=== PATIENT | female | born 1980 | race African-American/Black ===

== ENCOUNTER 2020-05-13 21:03 | Emergency (ER) | payer OTHER, SELFPAY ==
--- NOTE | ~2020-05-13 | XR_ITS ---
EXAMINATION: XR chest 2V DATE: 05/13/2020 23:16 INDICATION: Cough. Shortness of breath. TECHNIQUE: Frontal and lateral views of the chest were obtained. COMPARISON: Chest 2 views 07/20/2018 FINDINGS: The chest demonstrates clear lungs without pneumonia, pleural effusion, or pneumothorax. Th e heart size is normal. IMPRESSION: 1. No acute cardiopulmonary disease. Reviewed, dictated and finalized at location A.
[2020-05-13 21:37] VITALS: BP 126/84; PULSE 82; RESP 18; TEMP 36.6; O2SAT 100
[2020-05-13 22:26] VITALS: PULSE 73; RESP 16
--- NOTE | 2020-05-13 22:33 | ED.ASTHMA ---
HPI - Asthma General Chief Complaint: Asthma Stated Complaint: problems breathing/asthma Time Seen by Provider: 05/13/20 22:24 Source: patient Mode of arrival: ambulatory Limitations: no limitations History of Present Illness HPI Narrative: 39-year-old female Patient states a history of asthma but usually does not require medications She said that 2 weeks ago she started having some breathing difficulties and 6 days ago, Thursday, she had a virtual visit at which time she started albuterol and Symbicort plus prednisone However she still feels like she has shortness of breath and like she is not getting better Related Data Home Medications Medication Instructions Recorded Confirmed albuterol sulfate INHALATION 05/13/20 budesonide-formoterol [Symbicort] INHALATION 05/13/20 cyclobenzaprine mg 05/13/20 prednisone 05/13/20 Allergies Allergy/AdvReac Type Severity Reaction Status Date / Time No Known Allergies Allergy Unknown Verified 05/13/20 21:41 Review of Systems Review of Systems: All systems reviewed & are unremarkable except as noted in HPI and below Constitutional: Constitutional: Reports no additional constitutional complaints, Denies chills, Reports fatigue, Denies fever(s) and Denies headache(s) ENT: Denies headache(s), Reports nasal congestion and Denies sore throat Cardiovascular: Cardiovascular: Denies chest pain and Denies dyspnea Respiratory: Respiratory: Reports cough and Reports dyspnea Gastrointestinal: Gastrointestinal: Denies diarrhea and Denies vomiting Genitourinary: Genitourinary: Denies urinary frequency Musculoskeletal: Musculoskeletal: Denies deformity and Denies numbness Integumentary/Breasts: Skin/Breast: Denies rash and Denies wounds Neurologic: Denies focal weakness Psychiatric: Psychiatric: Reports no additional psychiatric complaints Endocrine: Endocrine: Reports no additional endocrine complaints Hematologic/Lymphatic: Hematologic/Lymphatic: Reports no additional hematologic/lymphatic complaints Allergic/Immunologic: Allergic/Immunologic: Reports no additional allergic/immunologic complaints [facility] Social History Social History Gender identity (if verbalized by the patient): Female Exam Const: General: no acute distress and alert Nutritional Appearance: obese Orientation/consciousness: patient oriented x3 HENMT: Head: normal to inspection Eyes: Conjunctivae: conjunctivae normal EOM: EOMs intact bilaterally Resp: Effort & Inspection: normal respiratory effort, not labored and no retractions Auscultation: clear to auscultation bilaterally, no rales and no wheezes Cardio: Rate: regular rate Rhythm: regular rhythm Heart sounds: no murmurs GI: GI Palp: Yes Soft to palpation, No Guarding due to palpation present (GI) and No Rebound tenderness present Neuro: General: patient oriented x3 Speech: normal speech Course Course Emergency Course: see post tx pf measures which are ~75% predicted and still not wheezing feeling better Vital Signs Vital signs: Vital Signs Temperature 36.6 C 05/13/20 21:37 Pulse Rate 82 05/13/20 21:37 Respiratory Rate 18 05/13/20 21:37 Blood Pressure 126/84 05/13/20 21:37 Pulse Oximetry 100 05/13/20 21:37 Temperature 36.6 C 05/13/20 21:37 Pulse Rate 73 05/13/20 23:37 Respiratory Rate 16 05/13/20 23:37 Blood Pressure 126/84 05/13/20 21:37 Pulse Oximetry 100 05/13/20 21:37 MDM - Asthma Imaging Data My impression: CXR: NAD Discharge Plan Discharge Clinical Impression: Asthma with acute exacerbation Patient Disposition: Home, Self-Care Condition: Improved Instructions: Antibiotic Form, Asthma (ED) Prescriptions: No Action cyclobenzaprine 10 mg tablet RF: 0 prednisone 20 mg tablet RF: 0 albuterol sulfate 90 mcg/actuation HFA aerosol inhaler INHALATION RF: 0 budesonide-formoterol [Symbicort] 160-4.5 mcg/actuation HFA aerosol inha
[2020-05-13] MEDS: ALBUTEROL SULFATE NEB 2.5 MG/0.5 ML INH 5 MG INHALATION ×2 (22:38→23:25)
[2020-05-13] MEDS: IPRATROPIUM BR 0.02% INH SOLN 0.5 MG/2.5 ML VIAL INHALATION ×2 (22:38→23:25)
[2020-05-13 22:49] VITALS: PULSE 67; RESP 16
[2020-05-13 23:28] VITALS: PULSE 72; RESP 16
[2020-05-13 23:37] VITALS: PULSE 73; RESP 16
[2020-05-14 00:45] VITALS: BP 118/71; PULSE 81; RESP 16; O2SAT 100
== END 2020-05-14 00:46 | disposition home or self-care (01) ==
PROVIDERS: Emergency Provider Emergency Medicine; PCP Physician Assistant
DX: J45.901 Unspecified asthma with (acute) exacerbation (principal)
CPT/HCPCS: 71046; 94640; 99283

== ENCOUNTER 2020-07-20 18:19 | Emergency (ER) | payer OTHER, SELFPAY ==
[2020-07-20 18:32] VITALS: BP 124/72; PULSE 89; RESP 20; TEMP 36.5; O2SAT 100
--- NOTE | 2020-07-20 18:33 | ED.GENADULT ---
HPI - General Adult General Chief complaint: Urogenital-Female Stated complaint: uti Time Seen by Provider: 07/20/20 18:33 Source: patient and RN notes reviewed Mode of arrival: ambulatory Limitations: no limitations History of Present Illness HPI narrative: 40-year-old -[place] female presents with vaginal discharge, irritation, and intermittent abdominal pain for the past 21 days. Cain reports increasing cloudy discharge over the past 2 weeks. Vaginal cream without relief. No significant pelvic pain. No dysuria. Denies fever or chill. Concerns for STDs, unprotected intercourse 2 months ago. Sexually active. Denies unprotected intercourse and multiple partners. Does not douche. No exacerbating factors. Denies hematuria or vaginal bleeding. LMP unknown, Cain reports menstrual flow does not flow down due to vaginal ablation. No flank pain. Denies nausea or vomiting.? Tolerating liquids well.? Remains active. The patient reports she has not been diagnosed with COVID-19.? The patient reports she received 2 Pfizer COVID-19 vaccines. The patient reports she is not waiting for the results of a COVID-19 lab test.? The patient reports she does not have chills, weakness, or fatigue.? The patient reports she does not have a new or worsening cough or shortness of breath.? Denies chest pain.? The patient reports she does not have any rhinorrhea, congestion, sore throat, loss of taste or smell, and diarrhea. Denies recent traveling.? Denies concerns for COVID-19 or exposures.? At this time, the patient is not suspected of having COVID-19. Some parts of this dictation were generated by voice recognition software and may contain typographical and/or grammatical inaccuracies. Related Data Home Medications Medication Instructions Recorded Confirmed albuterol sulfate INHALATION 05/13/20 budesonide-formoterol [Symbicort] INHALATION 05/13/20 terconazole 1 applic VAGINAL DAILY 07/20/20 07/20/20 Allergies Allergy/AdvReac Type Severity Reaction Status Date / Time No Known Allergies Allergy Unknown Verified 07/20/20 18:24 Review of Systems Review of Systems: Narrative: CONSTITUTIONAL: Denies fever, chills, sweats. EYES: Denies visual changes, redness, discharge. ENT: Denies rhinorrhea, congestion, sore throat, otalgia. CARDIOVASCULAR: Denies chest pain, palpitations, edema. RESPIRATORY: Denies dyspnea, wheezing, cough. GASTROINTESTINAL: Complaints of intermittent abdominal pain. Denies nausea, vomiting, diarrhea. GENITOURINARY: Complains of dysuria (burning, frequent, urgency), vaginal irritation, abnormal discharge. Denies hematuria. SKIN: Denies rash or itching. MUSCULOSKELETAL: Denies acute back pain, joint pain, or myalgia. NEUROLOGIC: Denies numbness or focal weakness. PSYCHIATRIC: Denies anxiety or depression. All systems reviewed & are unremarkable except as noted in HPI and below. [facility] Past Medical History Medical History (Updated 07/26/20 @ 22:21 by LISA Beckham) Asthma IBS (irritable colon syndrome) Obese Surgical History Surgical History (Updated 07/26/20 @ 22:23 by LISA Beckham) History of endometrial ablation 12/2019 History of tonsillectomy History of tubal ligation Family History Family History (Updated 07/26/20 @ 22:22 by LISA Beckham) Father Unknown family medical history Mother Smoker in home Social History Social History Gender identity (if verbalized by the patient): Female Comments At time of signature, agree with the nurse past medical, surgical, social, and family history.? There is no relevant family history pertinent to the presenting complaint. Exam Narrative: Exam Narrative: GENERAL: This is a well-nourished, well-developed patient, in no apparent distress.? Talks in full sentences and ambulates with steady gait without dyspnea. HEAD: normocephalic, atraumatic. EYES: PERRL
[2020-07-20] MEDS: metroNIDAZOLE 250 MG TABLET 2000 MG PO (19:18)
[2020-07-20] MEDS: cefTRIAXone 250 MG VIAL 500 MG IM (19:18)
[2020-07-20] MEDS: LIDOCAINE HCL 1% LOCAL INJ 20 ML VIAL INFILTRATE (19:18)
== END 2020-07-20 19:46 | disposition home or self-care (01) ==
PROVIDERS: Emergency Provider Nurse Practitioner Family; PCP Physician Assistant
DX: N76.0 Acute vaginitis (principal); R10.9 Unspecified abdominal pain; Z20.2 Contact with and (suspected) exposure to infections with a predominantly sexual mode of transmission
CPT/HCPCS: 81003; 87491; 87591; 87661; 96372; 99214; A9270; G0463; J0696

== ENCOUNTER 2021-03-15 13:18 | Emergency (ER) | payer OTHER, SELFPAY ==
[2021-03-15 13:26] VITALS: BP 131/75; PULSE 90; RESP 20; TEMP 36.2; O2SAT 99
--- NOTE | 2021-03-15 13:27 | ED.URI ---
HPI - URI/Sore Throat General Chief Complaint: Upper Respiratory Infection Stated Complaint: congestion Time Seen by Provider: 03/15/21 13:44 Source: patient and RN notes reviewed Mode of arrival: ambulatory Limitations: no limitations History of Present Illness HPI Narrative: 40-year-old female presents with concern for sneezing, cough, nasal drainage, nasal congestion that started on Thursday. She reports general malaise and feeling tired. She reports she is vaccinated. She is taking [id number] medications with little relief. Reports she has been needing her rescue inhaler, when she normally does not use it. MD elicited complaint: cough and sore throat Related Data Allergies Allergy/AdvReac Type Severity Reaction Status Date / Time No Known Allergies Allergy Unknown Verified 03/15/21 13:32 Review of Systems Review of Systems: CONSTITUTIONAL: Reports malaise, fatigue. Chills, sweats, or fever. EYES: Denies visual changes, redness, or discharge. ENT: Reports rhinorrhea, congestion. Denies sinus pain, otalgia and sore throat. CARDIOVASCULAR: Denies chest pain, palpitations, or edema. RESPIRATORY: Reports cough. Denies dyspnea. GASTROINTESTINAL: Denies abdominal pain, nausea, vomiting, diarrhea SKIN: Denies rash or itching. MUSCULOSKELETAL: Denies myalgia. NEUROLOGIC: Denies headache. All systems reviewed & are unremarkable except as noted in HPI and below PMFSH Past Medical History Medical History (Updated 03/15/21 @ 13:42 by Elke Owens NP) Asthma IBS (irritable colon syndrome) Obese Surgical History Surgical History (Updated 07/26/20 @ 22:23 by LISA Beckham) History of endometrial ablation 12/2019 History of tonsillectomy History of tubal ligation Family History Family History (Updated 07/26/20 @ 22:22 by LISA Beckham) Father Unknown family medical history Mother Smoker in home Social History Social History Gender identity (if verbalized by the patient): Female Comments At time of signature, agree with nursing past medical, surgical, social and family history. There is no relevant family history pertinent to the presenting complaint Exam Narrative: GENERAL: Well-appearing, well-nourished, and in no acute distress. HEAD: Normocephalic EYES: PERRLA, conjunctivae clear ENT: Nares clear, clear discharge. Mucous membranes moist. TM pearly salazar with dull light reflex bilaterally; no tragal tenderness. Oropharynx not erythematous without lesions. Tonsils not enlarged and without exudate, no drooling, no hoarseness, no trismus, uvula midline. NECK: Supple. No lymphadenopathy CHEST: Clear to auscultation, breath sounds equal. No wheezing, rhonchi, rales, or stridor. No respiratory distress, speaks in full sentences. HEART: Regular rate and rhythm. No murmur heard. SKIN: Warm, dry, no rash. NEURO: Alert and oriented x3. PSYCH: Normal mood and affect Course Course Emergency Course: Patient is aware of diagnosis, understands and agrees to treatment plan. Anticipatory guidance given. Patient agrees to follow-up as directed and is aware of reasons to seek care at the emergency department. Portions of this record may have been created with voice recognition software Level of Care: Express Care Visit Vital Signs Vital signs: Reviewed. MDM - URI/Sore Throat MDM Narrative Medical decision making narrative: Differential diagnosis considered: Lewis virus, strep pharyngitis, allergic rhinitis, upper respiratory tract infection, sinusitis, rhinosinusitis, nasopharyngitis. viral pharyngitis, otitis media, otitis externa, pneumonia, bronchitis, viral cough syndrome, viral syndrome, and influenza. Exam findings show no acute concerns or changes; patient is non-toxic appearing and is in no distress. Patient is appropriate for outpatient treatment and follow-up. Lab Data Attestation: I reviewed the patient's lab results. Cri
== END 2021-03-15 13:51 | disposition home or self-care (01) ==
PROVIDERS: Emergency Provider Nurse Practitioner; PCP Physician Assistant
DX: J06.9 Acute upper respiratory infection, unspecified (principal); Z20.822 Contact with and (suspected) exposure to COVID-19; J45.909 Unspecified asthma, uncomplicated
CPT/HCPCS: 87426; 87804; 99213; C9803; G0463

== ENCOUNTER 2021-04-04 09:36 | Emergency (ER) | payer OTHER, SELFPAY ==
[2021-04-04 09:45] VITALS: BP 119/69; PULSE 94; RESP 16; TEMP 37.5; O2SAT 99
--- NOTE | 2021-04-04 09:49 | ED.FEVER ---
HPI - Fever General Chief Complaint: Upper Respiratory Infection Stated Complaint: Body aches/fever Time Seen by Provider: 04/04/21 09:49 Source: patient, RN notes reviewed and old records reviewed Mode of arrival: ambulatory Limitations: no limitations History of Present Illness HPI Narrative: 40-year-old female presents to the [facility] with complaints of generalized body aches and subjective fever since last night. States she took a home COVID test and it was negative. Patient denies any chest pain, shortness of breath, abdominal pain, nausea, vomiting or diarrhea. Denies headaches, sore throat, or any upper respiratory symptoms. Denies any urinary symptoms. Related Data Home Medications Medication Instructions Recorded Confirmed No Home Medications 04/04/21 04/04/21 Allergies Allergy/AdvReac Type Severity Reaction Status Date / Time No Known Allergies Allergy Unknown Verified 03/15/21 13:32 Review of Systems Review of Systems: All systems reviewed & are unremarkable except as noted in HPI and below Constitutional: Constitutional: Reports as per HPI, Denies chills, Reports fatigue and Reports fever(s) (Subjective) Eyes: Eyes: Reports no additional eye complaints, Denies change in vision and Denies photophobia ENT: Reports system reviewed and no additional complaints, except as documented and Denies sore throat Cardiovascular: Cardiovascular: Reports no additional cardiovascular complaints and Denies chest pain Respiratory: Respiratory: Reports no additional respiratory complaints, Denies chest congestion, Denies cough, Denies dyspnea and Denies wheezing Gastrointestinal: Gastrointestinal: Reports no additional gastrointestinal complaints, Denies abdominal pain, Denies nausea and Denies vomiting Musculoskeletal: Musculoskeletal: Reports as per HPI and Reports myalgias Integumentary/Breasts: Skin/Breast: Reports system reviewed and no additional complaints, except as docu Neurologic: Reports system reviewed and no additional complaints, except as documented, Denies dizziness, Denies headache(s), Denies focal weakness, Denies numbness and Denies weakness Psychiatric: Psychiatric: Reports no additional psychiatric complaints Allergic/Immunologic: Allergic/Immunologic: Reports no additional allergic/immunologic complaints [facility] Past Medical History Medical History (Updated 04/04/21 @ 10:11 by Elke Gunn APRN) Asthma IBS (irritable colon syndrome) Obese Surgical History Surgical History History of endometrial ablation 12/2019 History of tonsillectomy History of tubal ligation Family History Family History Father Unknown family medical history Mother Smoker in home Social History Social History Gender identity (if verbalized by the patient): Female Comments At the time of my signature, I reviewed and agree with the nursing past medical, surgical, social, and family history. There is no relevant family history pertinent to the patient complaint. Exam Const: General: healthy appearing, no acute distress and alert Nutritional Appearance: well nourished Orientation/consciousness: patient oriented x3 Limitations: no limitations HENMT: Head: normal to inspection Ears: external ears normal, TM's normal bilaterally and EAC's normal General nose exam: Normal external nose present Face and sinus: normal facial exam Mouth: Yes Normal oral and palatal mucosa present Throat: posterior oropharynx normal, tonsils normal and uvula midline Eyes: Pupils: Equal, round and reactive pupils present Neck: Neck: normal visual inspection, no lymphadenopathy and no meningeal signs Chest: Chest palpation & inspection: normal inspection of the chest Resp: Effort & Inspection: normal respiratory effort and no use of accessory muscles [facility]
[2021-04-05 17:14] LABS: SARS-CoV-2 RNA PCR Negative
== END 2021-04-04 10:13 | disposition home or self-care (01) ==
PROVIDERS: Emergency Provider Nurse Practitioner; PCP Physician Assistant
DX: R52 Pain, unspecified (principal); B34.9 Viral infection, unspecified; Z20.822 Contact with and (suspected) exposure to COVID-19; J45.909 Unspecified asthma, uncomplicated; E66.9 Obesity, unspecified; Z68.35 Body mass index [BMI] 35.0-35.9, adult
CPT/HCPCS: 87804; 99213; C9803; G0463; U0003; U0005

== ENCOUNTER 2021-09-09 12:10 | Emergency (ER) | payer OTHER, SELFPAY ==
[2021-09-09 12:24] VITALS: BP 118/66; PULSE 81; RESP 18; TEMP 36.6; O2SAT 98
--- NOTE | 2021-09-09 12:38 | ED.FEMALEGU ---
HPI - Female Genitourinary General Chief complaint: Urogenital-Female Stated complaint: UTI Time Seen by Provider: 09/09/21 12:38 Source: patient and RN notes reviewed Mode of arrival: ambulatory Limitations: no limitations History of Present Illness HPI Narrative: 41 y/o female presented for lower abdominal cramping for 2 days. Endorses associated urinary frequency and voiding in small amounts and mid low back pain. Denies hematuria, flank pain, nausea, vomiting, diarrhea, vaginal discharge, fever or chills. Concerned for uti. History of IBS-C. LBM 3 days ago. LMP 7, hx tubal ligation Related Data Home Medications Medication Instructions Recorded Confirmed albuterol sulfate 2 inh inhalation DIRECTED 09/09/21 09/09/21 norethindrone 1.5 mg-ethinyl 1 tablet PO DAILY 09/09/21 09/09/21 estradiol 30 mcg(21)/iron 75 mg(7) tablet (Aurovela Fe 1.5/30 (28)) terbinafine HCl 250 mg tablet 250 mg PO DIRECTED 09/09/21 09/09/21 Allergies Allergy/AdvReac Type Severity Reaction Status Date / Time No Known Allergies Allergy Unknown Verified 09/09/21 12:11 Review of Systems Review of Systems: CONSTITUTIONAL: Denies body aches, fever, chills, or sweats. CARDIOVASCULAR: Denies chest pain, palpitations, or edema. RESPIRATORY: Denies cough or dyspnea. GASTROINTESTINAL: Denies nausea, vomiting, or diarrhea. GENITOURINARY: Reports frequency, urgency, denies dysuria, hematuria, flank pain SKIN: Denies rash, itching, or wounds. MUSCULOSKELETAL: Denies back pain or myalgia. [facility] Past Medical History Medical History (Updated 09/09/21 @ 12:48 by Melissa Larios APRN) Asthma IBS (irritable colon syndrome) Obese Surgical History Surgical History History of endometrial ablation 12/2019 History of tonsillectomy History of tubal ligation Family History Family History Father Unknown family medical history Mother Smoker in home Social History Social History Gender identity (if verbalized by the patient): Female Comments At time of signature, I have reviewed and agree with nursing past medical, surgical, social and family history unless otherwise noted. Please see nursing chart for further information. There is no relevant family history pertinent to the presenting complaint Exam Narrative: GENERAL: Well-appearing and in no acute distress. ENT: Mucous membranes pink and moist. NECK: Normal AROM. Supple. CHEST: No respiratory distress. Clear to auscultation. HEART: Regular rate and rhythm. ABDOMEN: Soft, tender to bilateral lower quadrants with deep palpation; nondistended, normal active bowel sounds. No CVA tenderness MUSCULOSKELETAL: No bony tenderness. Back pain is mid low back no vpt. SKIN: Warm, dry, no rash. NEURO: Alert and oriented x3. Gait steady. Course Course Emergency Course: Patient is aware of diagnosis, understands and agrees to treatment plan. Anticipatory guidance given. Patient agrees to follow-up as directed and is aware of reasons to seek care at the emergency department. Portions of this record may have been created with voice recognition software Level of Care: Express Care Visit Vital Signs Vital signs: Vital Signs Temperature 97.8 F 09/09/21 12:24 Pulse Rate 81 09/09/21 12:24 Respiratory Rate 18 09/09/21 12:24 Blood Pressure 118/66 09/09/21 12:24 Pulse Oximetry 98 09/09/21 12:24 Oxygen Delivery Room Air 09/09/21 12:24 Temperature 97.8 F 09/09/21 12:24 Pulse Rate 81 09/09/21 12:24 Respiratory Rate 18 09/09/21 12:24 Blood Pressure 118/66 09/09/21 12:24 Pulse Oximetry 98 09/09/21 12:24 Oxygen Delivery Room Air 09/09/21 12:24 Reviewed MDM - Female Genitourinary MDM Narrative Medical decision making narrative: Patient presenting with concern for UT
== END 2021-09-09 12:53 | disposition home or self-care (01) ==
PROVIDERS: Emergency Provider Nurse Practitioner Family
DX: R35.0 Frequency of micturition (principal); J45.909 Unspecified asthma, uncomplicated; E66.9 Obesity, unspecified; Z68.33 Body mass index [BMI] 33.0-33.9, adult
CPT/HCPCS: 81003; 87086; 87491; 87591; 87661; 99214; G0463

== ENCOUNTER 2021-10-06 14:04 | Emergency (ER) | payer OTHER, SELFPAY ==
[2021-10-06 14:15] VITALS: BP 124/81; PULSE 77; RESP 16; TEMP 36.5; O2SAT 98
--- NOTE | 2021-10-06 15:09 | PC.NURSE ---
Assuming care of patient.
--- NOTE | 2021-10-06 15:27 | ED.GENADULT ---
HPI - General Adult General Chief complaint: Back Pain/Injury Stated complaint: back pain Time Seen by Provider: 10/06/21 14:36 History of Present Illness HPI narrative: 41-year-old female presenting to the emergency department for evaluation of right-sided lower back pain. Patient reports she has a prior history of low back pain but has never had back surgeries. Patient states that she used to get steroid injections. Patient states she has not had back pain for approximate the last 2 years. Patient states today while she was leaning into her trunk to grab a bottle of water she had onset of lower back pain. Patient denies any radiation of the pain and denies any associated numbness or weakness. Patient denies any change in bowel or bladder habits. Related Data Home Medications Medication Instructions Recorded Confirmed albuterol sulfate 2 inh inhalation DIRECTED 09/09/21 09/09/21 norethindrone 1.5 mg-ethinyl 1 tablet PO DAILY 09/09/21 09/09/21 estradiol 30 mcg(21)/iron 75 mg(7) tablet (Aurovela Fe 1.5/30 (28)) terbinafine HCl 250 mg tablet 250 mg PO DIRECTED 09/09/21 09/09/21 Allergies Allergy/AdvReac Type Severity Reaction Status Date / Time No Known Allergies Allergy Unknown Verified 10/06/21 14:42 Review of Systems Review of Systems: CONSTITUTIONAL: Denies fever, chills, or sweats. EYES: Denies visual changes, redness, or discharge. ENT: Denies rhinorrhea, congestion, sore throat, or otalgia. CARDIOVASCULAR: Denies chest pain, palpitations, or edema. RESPIRATORY: Denies cough or dyspnea. GASTROINTESTINAL: Denies abdominal pain, nausea, vomiting, or diarrhea. GENITOURINARY: Denies dysuria or hematuria. SKIN: Denies rash or itching. MUSCULOSKELETAL: See HPI NEUROLOGIC: Denies headache, numbness, or weakness. [facility] Past Medical History Medical History (Updated 10/06/21 @ 15:31 by Francis Hendricks MD) Asthma IBS (irritable colon syndrome) Obese Surgical History Surgical History History of endometrial ablation 12/2019 History of tonsillectomy History of tubal ligation Family History Family History Father Unknown family medical history Mother Smoker in home Social History Social History Gender identity (if verbalized by the patient): Female Exam Narrative: APPEARANCE: Well appearing, no pain, no distress, well-nourished. HEAD: normocephalic, atraumatic. EYES: PERRLA/EOMI, conjunctivae clear. NOSE: Normal no drainage NECK: Supple. No adenopathy, no masses. RESPIRATORY: Airway patent, respirations nonlabored. Clear to auscultation bilaterally, no rales, rhonchi, wheezing. CARDIOVASCULAR: Regular rate and rhythm without murmurs rubs or gallops. ABDOMINAL: Soft, nontender, nondistended, normal bowel sounds MUSCULOSKELETAL: Moves all extremities. Strength/ROM intact, No edema, No calf tenderness. Right paraspinal lumbar tenderness to palpation. No midline tenderness and no step-offs or deformities NEURO: Alert. Cranial nerves II through XII intact. Grossly intact SKIN: Warm, dry. Normal Color Course Course Emergency Course: Patient was treated for musculoskeletal back pain. Patient is neurologically intact. Patient's mechanism is not concerning for fracture. Patient was advised on home treatment and advised on reasons to return to the emergency department. All questions and concerns were addressed. Patient was well-appearing at time of discharge. Vital Signs Vital signs: Vital Signs Temperature 97.7 F 10/06/21 14:15 Pulse Rate 77 10/06/21 14:15 Respiratory Rate 16 10/06/21 14:15 Blood Pressure 124/81 10/06/21 14:15 Pulse Oximetry 98 10/06/21 14:15 Oxygen Delivery Room Air 10/06/21 14:15 Temperature 97.7 F 10/06/21 14:15 Pulse Rate 77 10/06/21 14:15 Respiratory Rate 16 10/06/21
[2021-10-06] MEDS: CYCLOBENZAPRINE HCL 10 MG TABLET PO (15:31)
== END 2021-10-06 16:35 | disposition home or self-care (01) ==
PROVIDERS: Emergency Provider Emergency Medicine
DX: M54.50 Low back pain, unspecified (principal); J45.909 Unspecified asthma, uncomplicated; K58.9 Irritable bowel syndrome, unspecified; E66.9 Obesity, unspecified; Z68.35 Body mass index [BMI] 35.0-35.9, adult
CPT/HCPCS: 99283; A9270

== ENCOUNTER 2022-02-22 07:27 | Emergency (ER) | payer OTHER, SELFPAY ==
[2022-02-22] VITALS (22 sets, daily range): BP systolic 98–148; BP diastolic 58–92; PULSE 60–77; RESP 16–18; TEMP 36.3; O2SAT 96–100
--- NOTE | ~2022-02-22 | CT_ITS ---
EXAMINATION: CT abdomen pelvis w con DATE: 02/22/2022 08:41 INDICATION: Right sided abdominal pain and diarrhea for 2 days TECHNIQUE: Computed tomography (CT) of the abdomen and pelvis was performed with 100 CC Omnipaque 350 intravenous contrast. Automated exposure control and iterative reconstruction technique were employe d. Exam dose: 1175.20 mGy-cm total exam DLP. COMPARISON: 11/26/2016 obstructive series FINDINGS: Minimal bilateral dependent lower lobe atelectasis. Normal heart size. No pericardial or pl eural effusion. The liver, gallbladder, bile ducts, pancreas, pancreatic duct, spleen, and adrenal gl ands are unremarkable. Lateral renal cysts the largest on the right measuring 10 mm. No urinary tract calculus or hydroureteronephrosis. Normal caliber of the abdominal aorta. Bowels including the appendix are normal. Small fat-containing umbilical hernia. Bladder is normal. 1 cm enhancing fibroid at the right posterior lower uterine seg ment. There are couple right adnexal cysts, one measuring 1.7 cm and the smaller measuring 1.2 cm wit h peripheral enhancing wall likely representing a corpus luteum cyst. Minimal likely physiologic free fluid in the pelvis. No pathologically enlarged abdominal or pelvic lymphadenopathy. Moderate to sev ere lower lumbar spondylosis. IMPRESSION: 1. A couple small right ovarian cysts including a 1.2 cm likely corpus luteum cyst with minimal likel y physiologic free fluid in the pelvis. 2. 1 minute likely uterine fibroid. 2. Small fat-containing umbilical hernia. Reviewed, dictated and finalized at [facility]. Reviewed, dictated and finalized at [facility]. HT CALCULATOR IMPRESSION: 1. A couple small right ovarian cysts including a 1.2 cm likely corpus luteum c yst with minimal likely physiologic free fluid in the pelvis. 2. 1 minute likely uterine fibroid. 2. Small fat-containing umbilical hernia.
--- NOTE | ~2022-02-22 | US_ITS ---
EXAMINATION: US pelvic complete DATE: 02/22/2022 13:54 INDICATION: Right abdominal pain with right ovarian cyst on prior CT. TECHNIQUE: Multiple transabdominal and endovaginal sonographic images of the pelvis were obtained. COMPARISON: None. FINDINGS: The uterus measures 10.0 x 5.6 x 6.8 cm. The endometrial complex measures 6 mm in thickness. A well- defined junctional zone with heterogeneous echogenicity and 2 mm anechoic cystic space posteriorly co nsistent with diffuse adenomyosis. A few anechoic nabothian cysts at the cervix measuring, the larges t measuring up to 10 mm . The right ovary measures 3.8 x 2.0 x 3.7 cm. There are several cysts/follic les in the right ovary, the largest measuring 2.0 cm with a smaller 1.4 cm cyst with somewhat thicken ed irregular wall which appears to have ruptured along one side which corresponds to the peripherally enhancing cyst on prior CT most consistent with a corpus luteum cyst. The left ovary measures 2.0 x 1.4 x 1.7 cm. There is normal vascular flow including arterial waveforms in both the left and right o varies. There is small amount anechoic free fluid in the pelvis. IMPRESSION: 1. Normal vascular flow to the right ovary which contains a few small cysts/follicles including a lik luis partially ruptured 1.4 cm corpus luteum cyst. 2. Diffuse adenomyosis. Reviewed, dictated and finalized at [facility]. MILL OPERATOR IMPRESSION: 1. Normal vascular flow to the right ovary which contains a few small cysts/fol licles including a likely partially ruptured 1.4 cm corpus luteum cyst. 2. Diffuse adenomyosis.
--- NOTE | 2022-02-22 07:30 | ED.ABDPAIN ---
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 She denies any fever, chills, nausea, vomiting, diarrhea, constipation, vaginal bleeding or discharge, history of bilateral tubal ligation. Patient reports pain radiating to the back. She denies having similar symptoms Related Data Home Medications Medication Instructions Recorded Confirmed albuterol sulfate 2 inh inhalation DIRECTED 09/09/21 09/09/21 norethindrone 1.5 mg-ethinyl 1 tablet PO DAILY 09/09/21 09/09/21 estradiol 30 mcg(21)/iron 75 mg(7) tablet (Aurovela Fe 1.5/30 (28)) terbinafine HCl 250 mg tablet 250 mg PO DIRECTED 09/09/21 09/09/21 Allergies Allergy/AdvReac Type Severity Reaction Status Date / Time No Known Allergies Allergy Unknown Verified 02/22/22 07:31 Review of Systems Review of Systems: All systems reviewed & are unremarkable except as noted in HPI and below PMFSH Past Medical History Medical History Asthma IBS (irritable colon syndrome) Obese Surgical History Surgical History History of endometrial ablation 12/2019 History of tonsillectomy History of tubal ligation Family History Family History Father Unknown family medical history Mother Smoker in home Social History Social History Gender identity (if verbalized by the patient): Female Exam Narrative: General appearance: Well-developed, well-nourished Skin: Normal color Head: Normocephalic, nontraumatic Eyes: Clear conjunctiva ENT: Oropharynx normal, ears normal, nose normal Neck: Supple, nontender Chest and respiratory: Airway patent, no respiratory distress, no accessory muscle use Heart: Regular rate/rhythm Abdomen: Soft, right lower quadrant tenderness, rebound, no guarding, no organomegaly, quiet bowel sounds Vascular: Normal peripheral pulses, normal capillary refill. 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 normal as tested, no gross motor deficit Course Vital Signs Vital signs: Vital Signs Temperature 36.3 C L 02/22/22 07:28 Pulse Rate 77 02/22/22 07:28 Respiratory Rate 16 02/22/22 07:28 Blood Pressure 148/92 H 02/22/22 07:28 Pulse Oximetry 100 02/22/22 07:28 Temperature 36.3 C L 02/22/22 07:28 Pulse Rate 64 02/22/22 10:15 Respiratory Rate 18 02/22/22 10:15 Blood Pressure 112/66 02/22/22 10:15 Pulse Oximetry 100 02/22/22 10:15 MDM - Abdominal Pain MDM Narrative Medical decision making narrative: 41 years old -[place] female came with right lower quadrant pain started last night, sharp, radiating to the right back, Acute appendicitis, constipation, urinary stone, UTI, diverticulitis, ovarian cyst ruptured/torsion is my concern. Labs, CT abdomen pelvis with IV contrast ordered, no significant finding. Pelvic ultrasound to rule out the possibility of ovarian torsion, no acute abnormality. Right lower quadrant pain of unknown etiology. Patient was advised to take Tylenol, ibuprofen as needed and to return if the symptoms are worsening. Patient received 1 L of normal sali
[2022-02-22 08:12] LABS: Basophils Percent Auto 0.3 % (0.2-1.2); Eosinophils Absolute Auto 0.1 K/mm3 (0-0.3); Eosinophils Percent Auto 0.7 % (0-4.4); Hematocrit 37.5 % (37.0-47.0); Hemoglobin 11.9 g/dL (12.0-15.0); Immature Granulocyte Absolute 0.02 K/mm3 (0.00-0.031); Immature Granulocyte Percent A 0.2 % (0-0.5); Lymphocytes Absolute Auto 2.38 K/mm3 (0.9-3.2); Lymphocytes Percent Auto 23.6 % (18.3-44.2); Mean Corpuscular HGB Conc 31.7 g/dl (32-36); Mean Corpuscular Volume 91.2 fl (80-100); Mean Platelet Volume 9.5 fl (7.4-10.4); Monocytes Absolute Auto 0.6 K/mm3 (0.1-0.6); Monocytes Percent Auto 6.2 % (2.6-8.5); Platelet Count Result 331 k/mm3 (150-375); Red Blood Count 4.11 M/mm3 (4.2-5.4); Red Cell Distribution Width 12.9 % (11.5-14.5); White Blood Count 10.1 K/mm3 (4.5-10.0)
[2022-02-22 08:13] LABS: Appearance Urine Clear (Clear); Bilirubin Urine Negative (Negative); Blood Urine Trace-lysed (Negative); Color Urine Light Yellow (Yellow); Glucose Urine UA Negative (Negative); Ketones Urine Negative (Negative); Leukocyte Esterase Ur Negative LEU/UL (Negative); Nitrate Urine Negative (Negative); Protein Urine Negative (Negative); Specific Grav Ur 1.015 (1.001-1.035); Urobilinogen Urine 0.2 mg/dL (<2.0); pH Urine 7.5 (5.0-9.0)
[2022-02-22] MEDS: SODIUM CHLORIDE 0.9% IV 1,000 ML 999 ML IV CONT (08:15)
[2022-02-22] MEDS: MORPHINE SULFATE (*CRX) 4 MG/ML INJ IV PUSH (08:15)
[2022-02-22] MEDS: ONDANSETRON INJ 4 MG/2 ML VIAL IV PUSH (08:16)
[2022-02-22 08:22] LABS: Alanine Aminotransferase 11 U/L (6-35); Albumin Level 4.2 g/dL (3.5-5.1); Alkaline Phosphatase 64 U/L (38-126); Anion Gap 7 mmol/L (8-16); Aspartate Amino Transferase 17 U/L (14-36); Bilirubin,Total 0.4 mg/dL (0.2-1.3); Blood Urea Nitrogen 11 mg/dL (7-17); Calcium 8.7 mg/dL (8.4-10.2); Carbon Dioxide 25 mmol/L (22-30); Chloride 105 mmol/L (98-107); Estimated CRCL calculation 102 ml/min; Estimated Glomerular Filt Rate > 60; Glucose 96 mg/dL (65-110); Lipase 69 U/L (23-300); Potassium 3.8 mmol/L (3.4-5.0); Sodium 137 mmol/L (137-145)
[2022-02-22 08:27] LABS: Bacteria Urine Trace /hpf; Mucus Urine Rare /lpf; RBC Urine 0-2 /hpf (0-2); Squamous Epithelial Cell Urine Occasional /hpf (Few); WBC Urine 0-3 /hpf
[2022-02-22 08:50] LABS: Add Urine Microscopic? YES
[2022-02-22] MEDS: HYDROmorphone HCL INJ (*CRX) 1 MG/ML SYR 0.5 MG IV PUSH (11:16)
== END 2022-02-22 14:16 | disposition home or self-care (01) ==
LOC: ANHED 07:56
PROVIDERS: Emergency Provider Emergency Medicine
DX: R10.31 Right lower quadrant pain (principal); J45.909 Unspecified asthma, uncomplicated; K58.9 Irritable bowel syndrome, unspecified; E66.9 Obesity, unspecified; Z68.36 Body mass index [BMI] 36.0-36.9, adult; K42.9 Umbilical hernia without obstruction or gangrene; N80.03 Adenomyosis of the uterus; N83.11 Corpus luteum cyst of right ovary
CPT/HCPCS: 36415; 74177; 76856; 80053; 81001; 81025; 83690; 85025; 96361; 96374; 96375; 99284; J1170; J2270; J2405; J7030; Q9967

== ENCOUNTER 2022-02-24 11:13 | Emergency (ER) | payer OTHER, SELFPAY ==
[2022-02-24 11:17] VITALS: BP 118/65; PULSE 76; RESP 16; TEMP 36.4; O2SAT 99
--- NOTE | 2022-02-24 11:20 | ED.ABDPAIN ---
HPI - Abdominal Pain General Chief Complaint: Abdominal Pain Stated Complaint: Abdominal Pain Time Seen by Provider: 02/24/22 11:20 Source: patient, RN notes reviewed and old records reviewed Mode of arrival: ambulatory Limitations: no limitations History of Present Illness HPI narrative: 41-year-old female presents to the [facility] with right lower quadrant pain. Patient states and per medical record was seen in the emergency room 2 days ago for same complaint. Patient states the pain just keeps getting worse. Denies any fevers. Patient states that the pain started , seen in the ER on Thursday. Onset (ago): day(s) (4) Related Data Patient : No Home Medications Medication Instructions Recorded Confirmed albuterol sulfate 2 inh inhalation DIRECTED 09/09/21 09/09/21 montelukast 10 mg tablet mg 02/24/22 Allergies Allergy/AdvReac Type Severity Reaction Status Date / Time No Known Allergies Allergy Unknown Verified 02/24/22 11:14 Review of Systems Review of Systems: All systems reviewed & are unremarkable except as noted in HPI and below Constitutional: Constitutional: Reports no additional constitutional complaints Eyes: Eyes: Reports no additional eye complaints ENT: Reports system reviewed and no additional complaints, except as documented Cardiovascular: Cardiovascular: Reports no additional cardiovascular complaints, Denies chest pain and Denies dyspnea Respiratory: Respiratory: Reports no additional respiratory complaints, Denies chest congestion, Denies cough and Denies dyspnea Gastrointestinal: Gastrointestinal: Reports as per HPI, Reports abdominal pain (Right lower quadrant), Denies nausea and Denies vomiting Musculoskeletal: Musculoskeletal: Reports no additional musculoskeletal complaints Integumentary/Breasts: Skin/Breast: Reports system reviewed and no additional complaints, except as docu Neurologic: Reports system reviewed and no additional complaints, except as documented Psychiatric: Psychiatric: Reports no additional psychiatric complaints Allergic/Immunologic: Allergic/Immunologic: Reports no additional allergic/immunologic complaints [facility] Past Medical History Medical History Asthma IBS (irritable colon syndrome) Obese Surgical History Surgical History History of endometrial ablation 12/2019 History of tonsillectomy History of tubal ligation Family History Family History Father Unknown family medical history Mother Smoker in home Social History Social History Gender identity (if verbalized by the patient): Female Comments At the time of my signature, I reviewed and agree with the nursing past medical, surgical, social, and family history. There is no relevant family history pertinent to the patient complaint. Exam Const: General: cooperative, healthy appearing, comfortable, no acute distress, well developed, alert and well nourished Nutritional Appearance: well nourished and obese Orientation/consciousness: patient oriented x3 Limitations: no limitations HENMT: Head: normal to inspection Ears: hearing grossly normal bilaterally and external ears normal Face/Nose/Sinus: Normal external nose present, Normal nares present, Normal nasal mucous membranes and turbinates present and normal facial exam Face and sinus: normal facial exam Mouth: Yes Normal oral and palatal mucosa present, Yes lip normal and Yes moist mucous membranes Eyes: General: appearance normal, both eyes and all related structures Alignment and Position: alignment normal Periorbital: periorbital findings normal Conjunctivae: conjunctivae normal Pupils: Equal, round and reactive pupils present EOM: EOMs intact bilaterally Neck: Neck: normal visual inspection,
== END 2022-02-24 11:28 | disposition short-term general hospital (02) ==
LOC: EXPCOLL 11:15
PROVIDERS: Emergency Provider Nurse Practitioner; PCP Physician Assistant
DX: R10.31 Right lower quadrant pain (principal)
CPT/HCPCS: 99212; G0463

== ENCOUNTER 2022-04-28 18:32 | Emergency (ER) | payer OTHER, SELFPAY ==
[2022-04-28 18:38] VITALS: BP 127/75; PULSE 80; RESP 16; TEMP 36.4; O2SAT 100
--- NOTE | 2022-04-28 18:48 | ED.BACK ---
HPI - Back Pain/Injury General Chief Complaint: Back Pain/Injury Stated Complaint: Back Pain Time Seen by Provider: 04/28/22 18:50 Source: patient Mode of arrival: ambulatory Limitations: no limitations History of Present Illness HPI Narrative: Patient is a 41-year-old female that presents with right low back pain that started yesterday. Patient states it wraps around right hip and is a sharp throbbing pain. Has taken 1 dose of 800 of ibuprofen with no relief. Related Data Allergies Allergy/AdvReac Type Severity Reaction Status Date / Time No Known Allergies Allergy Unknown Verified 04/28/22 18:37 Review of Systems Review of Systems: All systems reviewed & are unremarkable except as noted in HPI and below Constitutional: Constitutional: Denies body ache(s), Denies fever(s), Denies headache(s), Denies malaise and Denies weakness Eyes: Eyes: Denies loss of vision ENT: Denies otalgia, Denies headache(s), Denies nasal discharge, Denies sinus pain and Denies sore throat Cardiovascular: Cardiovascular: Denies chest pain, Denies irregular heart rhythm and Denies dyspnea Respiratory: Respiratory: Denies dyspnea Gastrointestinal: Gastrointestinal: Denies abdominal pain, Denies melena, Denies hematochezia, Denies diarrhea, Denies nausea and Denies vomiting Musculoskeletal: Musculoskeletal: Reports back pain, Denies myalgias and Denies arthralgias Integumentary/Breasts: Skin/Breast: Denies pruritus and Denies rash Neurologic: Denies headache(s), Denies loss of vision and Denies weakness Psychiatric: Psychiatric: Reports no additional psychiatric complaints PMFSH Past Medical History Medical History Asthma IBS (irritable colon syndrome) Obese Surgical History Surgical History History of endometrial ablation 12/2019 History of tonsillectomy History of tubal ligation Family History Family History Father Unknown family medical history Mother Smoker in home Social History Social History Gender identity (if verbalized by the patient): Female Comments At time of signature, agree with nursing past medical, surgical, social and family history. There is no relevant family history pertinent to the presenting complaint. Exam Const: General: cooperative, healthy appearing, comfortable, no acute distress and well nourished Nutritional Appearance: well nourished Orientation/consciousness: patient oriented x3 Limitations: no limitations HENMT: Head: normal to inspection, normocephalic and atraumatic Ears: external ears normal Face/Nose/Sinus: Normal external nose present, normal facial exam and face symmetric Face and sinus: normal facial exam and face symmetric Mouth: Yes lip normal Eyes: General: appearance normal, both eyes and all related structures Alignment and Position: alignment normal and position normal Periorbital: periorbital findings normal Eyelids: eyelids normal Pupils: Equal, round and reactive pupils present EOM: EOMs intact bilaterally Neck: Neck: normal visual inspection and full ROM Chest: Chest palpation & inspection: normal inspection of the chest Resp: Effort & Inspection: normal respiratory effort and able to speak in complete sentences Auscultation: clear to auscultation bilaterally Cardio: Rate: regular rate Rhythm: regular rhythm Heart sounds: S1 normal heart sound present and S2 normal heart sound present GI: Inspection: normal to inspection Back/Spine/Pelvis: Back: no CVA tenderness Thoracic/Lumbar Spine: paraspinal muscle tenderness on the right in the lower lumbar and straight leg raise positive (right) Skin: General skin exam: normal color and no rashes or lesions noted Neuro: General: patient oriented x3 and moves all extremities Cranial nerves: Yes E
== END 2022-04-28 19:08 | disposition home or self-care (01) ==
PROVIDERS: Emergency Provider Nurse Practitioner Family; PCP Physician Assistant
DX: M54.30 Sciatica, unspecified side (principal)
CPT/HCPCS: 81003; 99213; G0463

== ENCOUNTER 2022-06-11 11:28 | Emergency (ER) | payer OTHER, SELFPAY ==
[2022-06-11 11:33] VITALS: BP 115/72; PULSE 74; RESP 20; TEMP 36.8; O2SAT 100
--- NOTE | 2022-06-11 11:39 | ED.URI ---
HPI - URI/Sore Throat General Chief Complaint: Upper Respiratory Infection Stated Complaint: Sinus Time Seen by Provider: 06/11/22 11:39 Source: patient Mode of arrival: ambulatory Limitations: no limitations History of Present Illness HPI Narrative: 41-year-old female presents stating she has a history of seasonal allergies and has been out of her allergy medication. She is unsure of the name but states that is prescription from her primary care physician. States that the [id number] medications do not help her. She reports since yesterday she has had a runny nose, a itching to nose, ears and eyes. Woke up this a.m. with sinus headache and pressure. Afebrile. Also reports postnasal drainage but no cough. All systems reviewed and negative except as noted above. Related Data Home Medications Medication Instructions Recorded Confirmed albuterol sulfate 90 mcg/actuation inhalation 06/11/22 06/11/22 aerosol inhaler Allergies Allergy/AdvReac Type Severity Reaction Status Date / Time No Known Allergies Allergy Unknown Verified 06/11/22 11:36 Review of Systems Review of Systems: CONSTITUTIONAL: Denies fever, chills, or sweats. EYES: Denies visual changes, redness, or discharge. ENT: Reports rhinorrhea, congestion. Denies sore throat, or otalgia. CARDIOVASCULAR: Denies chest pain, palpitations, or edema. RESPIRATORY: Denies cough or dyspnea. GASTROINTESTINAL: Denies abdominal pain, nausea, vomiting, or diarrhea. GENITOURINARY: Denies dysuria or hematuria. SKIN: Denies rash or itching. MUSCULOSKELETAL: Denies back pain, joint pain, or myalgia. NEUROLOGIC: Denies headache, numbness, or weakness. PSYCHIATRIC: Denies anxiety or depression. All other systems reviewed are negative, except as documented in HPI. [facility] Past Medical History Medical History Asthma IBS (irritable colon syndrome) Obese Surgical History Surgical History History of endometrial ablation 12/2019 History of tonsillectomy History of tubal ligation Family History Family History Father Unknown family medical history Mother Smoker in home Social History Social History Gender identity (if verbalized by the patient): Female Comments At time of signature, agree with nursing past medical, surgical, social and family history. There is no relevant family history pertinent to the presenting complaint. Exam Narrative: GENERAL: This is a well-nourished, well-developed patient, in no apparent distress. HEAD: normocephalic, atraumatic. EYES: PERRL. Sclera clear/white. Vision is grossly intact. EARS: External ears normal, auditory canals clear and without drainage, TMs normal without perforation. Hearing grossly intact. NOSE: External nose normal with clear nasal drainage, erythema to both nares. THROAT: Mucous membranes moist, Clear postnasal drainage NECK: Neck supple, non-tender without lymphadenopathy, masses or thyromegaly. CARDIOVASCULAR: Regular rate and rhythm without murmurs, gallops, or rubs. RESPIRATORY: Clear to auscultation. Breath sounds equal bilaterally. No wheezes, rales, or rhonchi. SKIN: warm, Dry, intact with no suspicious lesions or rash, good texture and turgor. NEURO: awake, alert, and oriented to person, place and time. There were no obvious focal neurologic abnormalities. EXTREMITIES: No joint tenderness, effusion, or edema noted. Course Course Level of Care: Express Care Visit Vital Signs Vital signs: Vital Signs Temperature 36.8 C 06/11/22 11:33 Pulse Rate 74 06/11/22 11:33 Respiratory Rate 20 06/11/22 11:33 Blood Pressure 115/72 06/11/22 11:33 Pulse Oximetry 100 06/11/22 11:33 Oxygen Delivery Room Air 06/11/22 11:33 Temperature 36.8 C
== END 2022-06-11 11:52 | disposition home or self-care (01) ==
PROVIDERS: Emergency Provider Nurse Practitioner Family; PCP Physician Assistant
DX: J30.9 Allergic rhinitis, unspecified (principal); J45.909 Unspecified asthma, uncomplicated; E66.9 Obesity, unspecified; Z68.36 Body mass index [BMI] 36.0-36.9, adult
CPT/HCPCS: 99213; G0463

== ENCOUNTER 2022-10-23 19:55 | Emergency (ER) | payer OTHER, SELFPAY ==
--- NOTE | ~2022-10-23 | XR_ITS ---
EXAMINATION: XR chest 2V DATE: 10/23/2022 20:37 INDICATION: Chest pain TECHNIQUE: Frontal and lateral views of the chest are obtained COMPARISON: 05/13/2020 FINDINGS: The lungs are free of acute opacities. No pleural effusion or pneumothorax. The cardiomedia stinal silhouette is normal. There is mild thoracic spondylosis. IMPRESSION: 1. No acute cardiopulmonary abnormality. Reviewed, dictated and finalized at [facility].
--- NOTE | 2022-10-23 20:01 | ECG_ITS ---
Measurements Intervals [place] Rate: 71 P: 46 [place]: 131 QRS: 19 QRSD: 107 T: 33 QT: 402 QTc: 439 Interpretive Statements SINUS RHYTHM MINIMAL Q WAVES- HIGH LATERAL LEADS BASELINE ARTIFACT- I, II, AVR BORDERLINE ECG COMPARED TO ECG 07/20/2018 17:27:48 NO SIGNIFICANT CHANGES Electronically Signed On 10-24-2022 6:29:22 CDT by Faustino Lockwood D.O.
[2022-10-23 20:32] LABS: Basophils Percent Auto 0.3 % (0.2-1.2); Eosinophils Absolute Auto 0.1 K/mm3 (0-0.3); Eosinophils Percent Auto 1.3 % (0-4.4); Hematocrit 35.6 % (37.0-47.0); Hemoglobin 11.2 g/dL (12.0-15.0); Immature Granulocyte Absolute 0.03 K/mm3 (0.00-0.031); Immature Granulocyte Percent A 0.3 % (0-0.5); Lymphocytes Absolute Auto 2.45 K/mm3 (0.9-3.2); Mean Corpuscular HGB Conc 31.5 g/dl (32-36); Mean Corpuscular Hemoglobin 28.9 pg (26-34); Mean Platelet Volume 9.2 fl (7.4-10.4); Monocytes Absolute Auto 0.8 K/mm3 (0.1-0.6); Monocytes Percent Auto 7.4 % (2.6-8.5); Neutrophils Absolute Auto 7.2 K/mm3 (1.3-6.7); Neutrophils Percent Auto 67.7 % (45.5-73.1); Platelet Count Result 303 k/mm3 (150-375); Red Blood Count 3.87 M/mm3 (4.2-5.4); Red Cell Distribution Width 13.2 % (11.5-14.5); White Blood Count 10.7 K/mm3 (4.5-10.0)
[2022-10-23 21:13] VITALS: BP 117/69; PULSE 71; RESP 18; TEMP 36.4; O2SAT 100
[2022-10-23 21:42] LABS: Alanine Aminotransferase 12 U/L (6-35); Albumin Level 3.7 g/dL (3.5-5.1); Alkaline Phosphatase 53 U/L (38-126); Anion Gap 8 mmol/L (8-16); Aspartate Amino Transferase 19 U/L (14-36); Bilirubin,Total 0.3 mg/dL (0.2-1.3); Blood Urea Nitrogen 11 mg/dL (7-17); Calcium 8.6 mg/dL (8.4-10.2); Carbon Dioxide 24 mmol/L (22-30); Chloride 107 mmol/L (98-107); Estimated CRCL calculation 88 ml/min; Estimated Glomerular Filt Rate > 60; Glucose 89 mg/dL (65-110); Lipase 85 U/L (23-300); Potassium 3.9 mmol/L (3.4-5.0); Sodium 139 mmol/L (137-145); Troponin I < 0.012 ng/mL (0.000-0.034)
[2022-10-23 21:44] LABS: Partial Thromboplastin Time 28.4 SECONDS (22.3-36.8)
--- NOTE | 2022-10-23 23:39 | PC.NURSE ---
Pt to the desk to inform this RN that she is leaving. A&O 4 in no acute distress.
== END 2022-10-24 00:11 | disposition left against medical advice (07) ==
LOC: ANHED 23:52
PROVIDERS: Emergency Provider Emergency Medicine; PCP Physician Assistant
DX: R07.9 Chest pain, unspecified (principal)
CPT/HCPCS: 36415; 71046; 80053; 83690; 84484; 85025; 85610; 85730; 93005; 99199

== ENCOUNTER 2022-12-18 18:50 | Emergency (ER) | payer MEDICAID, SELFPAY ==
--- NOTE | 2022-12-18 19:01 | ED.URI ---
HPI - URI/Sore Throat General Chief Complaint: Upper Respiratory Infection Stated Complaint: sore throat Time Seen by Provider: 12/18/22 19:02 Source: patient, RN notes reviewed and old records reviewed Mode of arrival: ambulatory Limitations: no limitations History of Present Illness HPI Narrative: 42-year-old female presents to the [facility] with complaints of a sore throat since yesterday. Son tested positive over the weekend. Denies any other symptoms but is sore throat. Onset (ago): day(s) (1) Related Data Allergies Allergy/AdvReac Type Severity Reaction Status Date / Time No Known Allergies Allergy Unknown Verified 12/18/22 18:58 Review of Systems Review of Systems: All systems reviewed & are unremarkable except as noted in HPI and below Constitutional: Constitutional: Reports no additional constitutional complaints Eyes: Eyes: Reports no additional eye complaints ENT: Reports as per HPI and Reports sore throat Cardiovascular: Cardiovascular: Reports no additional cardiovascular complaints, Denies chest pain and Denies dyspnea Respiratory: Respiratory: Reports no additional respiratory complaints, Denies chest congestion, Denies cough and Denies dyspnea Gastrointestinal: Gastrointestinal: Reports no additional gastrointestinal complaints, Denies abdominal pain, Denies nausea and Denies vomiting Musculoskeletal: Musculoskeletal: Reports no additional musculoskeletal complaints Integumentary/Breasts: Skin/Breast: Reports system reviewed and no additional complaints, except as docu Neurologic: Reports system reviewed and no additional complaints, except as documented Psychiatric: Psychiatric: Reports no additional psychiatric complaints Allergic/Immunologic: Allergic/Immunologic: Reports no additional allergic/immunologic complaints PMFSH Past Medical History Medical History Asthma IBS (irritable colon syndrome) Obese Surgical History Surgical History History of endometrial ablation 12/2019 History of tonsillectomy History of tubal ligation Family History Family History Father Unknown family medical history Mother Smoker in home Social History Social History Gender identity (if verbalized by the patient): Female Comments At the time of my signature, I reviewed and agree with the nursing past medical, surgical, social, and family history. There is no relevant family history pertinent to the patient complaint. Exam Const: General: cooperative, healthy appearing, comfortable, no acute distress, well developed, alert and well nourished Nutritional Appearance: well nourished Orientation/consciousness: patient oriented x3 Limitations: no limitations HENMT: Head: normal to inspection Ears: hearing grossly normal bilaterally, external ears normal, TM's normal bilaterally, EAC's normal, mastoids normal and no periauricular adenopathy Face/Nose/Sinus: Normal external nose present, Normal nares present, Normal nasal mucous membranes and turbinates present, normal facial exam and face symmetric Face and sinus: normal facial exam and face symmetric Mouth: Yes Normal oral and palatal mucosa present, Yes lip normal and Yes moist mucous membranes Throat: posterior oropharynx normal, tonsils normal, uvula midline and no uvular edema Eyes: General: appearance normal, both eyes and all related structures Alignment and Position: alignment normal Periorbital: periorbital findings normal Pupils: Equal, round and reactive pupils present EOM: EOMs intact bilaterally Neck: Neck: normal visual inspection, full ROM, no lymphadenopathy and no meningeal signs Chest: Chest palpation & inspection: normal inspection of the chest Resp: Effort & Inspection: normal respiratory effort and able to speak
[2022-12-18 19:02] VITALS: BP 116/69; PULSE 78; RESP 16; TEMP 36.6; O2SAT 100
== END 2022-12-18 19:18 | disposition home or self-care (01) ==
PROVIDERS: Emergency Provider Nurse Practitioner
DX: J02.9 Acute pharyngitis, unspecified (principal)
CPT/HCPCS: 87081; 87880; 99213; G0463

== ENCOUNTER 2023-01-13 13:21 | Emergency (ER) | payer BC, SELFPAY ==
--- NOTE | ~2023-01-13 | CT_ITS ---
Non-contrast Head CT History: Dizziness COMPARISON: 01/13/2023 at 1:48 PM Technique: Axial non-contrast imaging of the brain was performed. Dose reduction technique was used on this scan by utilizing automated exposure control and iterative reconstruction technique. The dose -length product (DLP) was 605.33 mGy-cm. Findings: There is no evidence of intracranial hemorrhage, mass lesion, or acute infarct. Brain par enchyma appears normal. The ventricles and subarachnoid spaces are normal in size. The calvarium ap pears normal. The visualized paranasal sinuses and mastoid air cells are clear. Impression: No significant abnormality seen. Reviewed, dictated and finalized at [facility]. [place] SAL[place] Impression: No significant abnormality seen.
--- NOTE | ~2023-01-13 | CT_ITS ---
Non-contrast Head CT History: Dizziness Technique: Axial non-contrast imaging of the brain was performed. Dose reduction technique was used on this scan by utilizing automated exposure control and iterative reconstruction technique. The dose -length product (DLP) was 605.33 mGy-cm. Findings: There is no evidence of intracranial hemorrhage, mass lesion, or acute infarct. Brain par enchyma appears normal. The ventricles and subarachnoid spaces are normal in size. The calvarium ap pears normal. There is mild bilateral ethmoid and left sphenoid sinus disease. The remaining visualiz ed paranasal sinuses and mastoid air cells are clear. Impression: No intracranial abnormality seen. Mild sinus disease, as above. Reviewed, dictated and finalized at location . [employer] LEAD MAN
--- NOTE | ~2023-01-13 | XR_ITS ---
EXAMINATION: XR chest 2V 01/13/2023 14:26 INDICATION: Weakness and dizziness PROCEDURE: 2 view chest COMPARISON: 10/23/2022 FINDINGS: The lungs are clear. The cardiomediastinal silhouette is within normal limits. There are no pleural effusions. There is no pneumothorax suspected. IMPRESSION: 1: NO ACUTE CARDIOPULMONARY DISEASE. Reviewed, dictated and finalized at location L. [employer] SYSTEMS ADMINISTRATOR
[2023-01-13 13:23] VITALS: BP 123/71; PULSE 80; RESP 16; TEMP 36.6; O2SAT 100
--- NOTE | 2023-01-13 13:26 | ECG_ITS ---
Measurements Intervals [place] Rate: 76 P: 46 [place]: 135 QRS: 10 QRSD: 98 T: 3 QT: 394 QTc: 444 Interpretive Statements SINUS RHYTHM NONSPECIFIC T-WAVE FLATTENING COMPARED TO ECG 10/23/2022 20:04:55 NO SIGNIFICANT CHANGES Electronically Signed On 01-13-2023 13:38:14 [employer] by Heidi Flores M.D.
--- NOTE | 2023-01-13 13:37 | ED.WEAKNESS ---
HPI - Weakness General Chief complaint: Weakness <HEATH Butt Last Filed: 01/13/23 13:53> Stated complaint: weakness and dizzy <HEATH Butt Last Filed: 01/13/23 13:53> Time Seen by Provider: 01/13/23 19:19 <HEATH Butt Last Filed: 01/13/23 13:53> Source: patient <HEATH Butt Last Filed: 01/13/23 13:53> Mode of arrival: ambulatory <HEATH Butt Last Filed: 01/13/23 13:53> Limitations: no limitations <HEATH Butt Last Filed: 01/13/23 13:53> History of Present Illness HPI Narrative: Patient is a 6-year-old female who presents the ED with report of weakness and dizziness. Patient reports she has had generalized weakness and dizziness, described as though she feels lightheaded, persistently since Thursday. Dizziness worse with standing and moving around. She has never had dizziness like this before. She has been eating and drinking normally. Denies room spinning sensation. Denies previous history of vertigo. Denies focal weakness or numbness. Denies nausea, vomiting, headache, vision changes, ear pain or tinnitus. <HEATH Butt Last Filed: 01/13/23 13:53> Related Data Allergies/Adverse reactions: Allergies Allergy/AdvReac Type Severity Reaction Status Date / Time No Known Allergies Allergy Unknown Verified 12/18/22 18:58 <HEATH Butt Last Filed: 01/13/23 13:53> Review of Systems Review of Systems: CONSTITUTIONAL: Denies fever, chills, or sweats. CARDIOVASCULAR: Denies chest pain, palpitations, or edema. RESPIRATORY: Denies cough or dyspnea. GASTROINTESTINAL: Denies abdominal pain, nausea, vomiting. MUSCULOSKELETAL: Denies back pain, joint pain, or myalgia. NEUROLOGIC: See HPI. <HEATH Butt Last Filed: 01/13/23 13:53> All systems reviewed & are unremarkable except as noted in HPI and below <Jocelyne Morillo PA-C - Last Filed: 01/13/23 13:53> [facility] Past Medical History Medical History: Medical History Asthma IBS (irritable colon syndrome) Obese <Jocelyne Morillo PA-C - Last Filed: 01/13/23 13:53> Surgical History Surgical History: Surgical History History of endometrial ablation 12/2019 History of tonsillectomy History of tubal ligation <Jocelyne Morillo PA-C - Last Filed: 01/13/23 13:53> Family History Family History: Family History Father Unknown family medical history Mother Smoker in home <Jocelyne Morillo PA-C - Last Filed: 01/13/23 13:53> Social History Social History: Social History Gender identity (if verbalized by the patient): Female <Jocelyne Morillo PA-C - Last Filed: 01/13/23 13:53> Exam Narrative: GENERAL: Well appearing, obese with BMI of 35.5, non-toxic, in no acute distress. HEAD: Normocephalic, atraumatic. EYES: PERRL/EOMI, conjunctivae clear bilaterally. No nystagmus. EARS:TMS clear, with good light reflex. No erythema or bulging. No cerumen impaction. NECK: Supple. No adenopathy, no masses. RESPIRATORY: Airway patent, respirations nonlabored. Clear to auscultation bilaterally, no rales, rhonchi, wheezing. CARDIOVASCULAR: Regular rate and rhythm without murmurs, rubs, or gallops. Radial pulses 2+ and equal bilaterally. ABDOMINAL: Soft, nontender, nondistended, no hepatosplenomegaly. Normoactive BS. MUSCULOSKELETAL: Moves all extremities. Strength/ROM intact without gross deformities. SKIN: Warm, dry, normal color. No rashes. NEURO: A&O X3. Speech clear. Follows commands. CN II-XII intact. Sensation grossly intact. Steady gait. No ataxic movements. Strength 5/5 in upper and lower extremities bilatera
[2023-01-13 13:45] LABS: Basophils Percent Auto 0.3 % (0.2-1.2); Eosinophils Absolute Auto 0.1 K/mm3 (0-0.3); Eosinophils Percent Auto 0.8 % (0-4.4); Hematocrit 41.5 % (37.0-47.0); Hemoglobin 13.3 g/dL (12.0-15.0); Immature Granulocyte Absolute 0.03 K/mm3 (0.00-0.031); Immature Granulocyte Percent A 0.3 % (0-0.5); Lymphocytes Absolute Auto 2.53 K/mm3 (0.9-3.2); Lymphocytes Percent Auto 22.4 % (18.3-44.2); Mean Corpuscular Hemoglobin 28.7 pg (26-34); Mean Corpuscular Volume 89.6 fl (80-100); Monocytes Absolute Auto 0.7 K/mm3 (0.1-0.6); Monocytes Percent Auto 6.5 % (2.6-8.5); Neutrophils Absolute Auto 7.9 K/mm3 (1.3-6.7); Neutrophils Percent Auto 69.7 % (45.5-73.1); Platelet Count Result 330 k/mm3 (150-375); Red Blood Count 4.63 M/mm3 (4.2-5.4); White Blood Count 11.3 K/mm3 (4.5-10.0)
[2023-01-13] MEDS: MECLIZINE HCL 25 MG TABLET PO (13:49)
[2023-01-13 13:59] LABS: Alanine Aminotransferase 13 U/L (6-35); Albumin Level 4.3 g/dL (3.5-5.1); Alkaline Phosphatase 74 U/L (38-126); Anion Gap 12 mmol/L (8-16); Aspartate Amino Transferase 20 U/L (14-36); Bilirubin,Total 0.7 mg/dL (0.2-1.3); Blood Urea Nitrogen 10 mg/dL (7-17); Calcium 9.3 mg/dL (8.4-10.2); Carbon Dioxide 21 mmol/L (22-30); Chloride 103 mmol/L (98-107); Estimated CRCL calculation 117 ml/min; Estimated Glomerular Filt Rate > 60; Glucose 93 mg/dL (65-110); Potassium 3.7 mmol/L (3.4-5.0); Sodium 136 mmol/L (137-145)
[2023-01-13 16:54] LABS: Appearance Urine Clear (Clear); Bacteria Urine 1+ /hpf; Bilirubin Urine Negative (Negative); Blood Urine Trace (Negative); Color Urine Yellow (Yellow); Glucose Urine UA Negative (Negative); Ketones Urine Negative (Negative); Leukocyte Esterase Ur Trace LEU/UL (Negative); Nitrate Urine Negative (Negative); Non Pathogenic Casts 0-2; Protein Urine Negative (Negative); Squamous Epithelial Cell Urine None seen /hpf (Few); Urobilinogen Urine 0.2 mg/dL (<2.0); WBC Urine 0-5 /hpf; pH Urine 6.5 (5.0-9.0)
[2023-01-13 17:07] LABS: Add Urine Microscopic? YES
[2023-01-13] MEDS: SODIUM CHLORIDE 0.9% IV 1,000 ML 999 ML IV CONT (19:38)
[2023-01-13] MEDS: ONDANSETRON INJ 4 MG/2 ML VIAL IV PUSH (19:38)
[2023-01-13 20:29] VITALS: BP 125/81; PULSE 70
[2023-01-13] MEDS: ACETAMINOPHEN 500 MG TABLET 1000 MG PO (20:29)
[2023-01-13 20:30] VITALS: BP 132/85; PULSE 67
[2023-01-13 20:33] VITALS: BP 131/89; PULSE 71
[2023-01-13 21:14] LABS: Influenza A QL RT-PCR Negative (Negative); Influenza B QL RT-PCR Negative (Negative); RSV RNA, RT-PCR Negative (Negative); SARS-CoV-2 RNA PCR Negative (Negative)
== END 2023-01-13 22:05 | disposition home or self-care (01) ==
PROVIDERS: Emergency Medicine; Emergency Provider Physician Assistant
DX: R42 Dizziness and giddiness (principal); Z20.822 Contact with and (suspected) exposure to COVID-19; J45.909 Unspecified asthma, uncomplicated
CPT/HCPCS: 36415; 70450; 71046; 80053; 81001; 85025; 87637; 93005; 96361; 96374; 99284; A9270; J2405; J7030

== ENCOUNTER 2023-04-22 12:40 | Emergency (ER) | payer MEDICAID, SELFPAY ==
[2023-04-22 12:53] VITALS: BP 112/66; PULSE 81; RESP 16; TEMP 37.2; O2SAT 99
--- NOTE | 2023-04-22 12:54 | ED.BACK ---
HPI - Back Pain/Injury General Chief Complaint: Back Pain/Injury Stated Complaint: back pain Time Seen by Provider: 04/22/23 12:54 Source: patient Mode of arrival: ambulatory Limitations: no limitations History of Present Illness HPI Narrative: Cain is a 42-year-old female patient presenting to the clinic today with complaints of low back pain with right sciatica since Thursday. She reports she is having some numbness and tingling in the right lower extremity. History of low back pain with sciatica in the past. Would like to get prescription for a steroid and muscle relaxer. Related Data Allergies Allergy/AdvReac Type Severity Reaction Status Date / Time No Known Allergies Allergy Unknown Verified 04/08/23 10:15 Review of Systems Review of Systems: Pertinent positives per HPI. Patient denies any fever, chills, rash, headache, visual changes, dizziness, cough, runny nose, sore throat, shortness of breath, chest pain, palpitations, nausea, vomiting, diarrhea, constipation, abdominal pain, or any urinary issues. [facility] Past Medical History Medical History Asthma IBS (irritable colon syndrome) Surgical History Surgical History History of endometrial ablation 12/2019 History of tubal ligation 05/2008 Family History Family History Father Unknown family medical history Mother Smoker in home Grandparent Diabetes mellitus Social History Social History Smoking status: Never smoker Alcohol intake: current Alcohol use details: occasionally Substance use: never Substance use type: does not use Do You Feel Safe in your Home?: Yes Lack of Transportation: No Lack of Food: Never True Current Housing: I Have Housing Concerned About Future Housing: No Difficulty Paying Gas/Electric Bills: No Difficulty Paying for Meds: No Currently Unemployed: No Education: Trade/Vocational Certificate Difficulty w/ Childcare or Family Care: No Living arrangements: with family Occupation/Education: occupation 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 There is no relevant family history pertinent to the patient complaint. Exam Narrative: General: Well-developed, morbidly obese, in no apparent distress Head: Normocephalic, atraumatic. Cardio: Regular rate and rhythm, s1 and s2 normal, no murmur appreciated. Resp: Clear to auscultation bilaterally, no rhonchi, rales, wheezing or rubs. Musculoskeletal: No deformity, tender to palpation over the low back/SI joint, bilateral straight leg test negative, good dorsal flexion and plantar flexion against resistance, lower extremity strong and equal, grossly normal range of motion, peripheral pulse strong, no edema, no cyanosis, normal gait and station Course Course Emergency Course: Portions of this record may have been created with voice recognition software. Level of Care: Express Care Visit Vital Signs Vital signs: Vital signs reviewed MDM - Back Pain/Injury MDM Narrative Medical decision making narrative: At the time of visit patient is resting comfortably on the exam table. Patient appears to be nontoxic. Plan: I suspect patient has right-sided sciatica with low back pain. Prescription for cyclobenzaprine and Medrol Dosepak was sent to the pharmacy. Supportive measures were discussed with the patient and they voiced understanding discharge instructions and agrees to treatment plan. Return precautions reviewed
== END 2023-04-22 13:15 | disposition home or self-care (01) ==
PROVIDERS: Emergency Provider Nurse Practitioner Family
DX: M54.41 Lumbago with sciatica, right side (principal); J45.909 Unspecified asthma, uncomplicated
CPT/HCPCS: 99213; G0463

== ENCOUNTER 2023-05-04 12:32 | Outpatient (CLI) | payer MEDICAID, SELFPAY ==
[2023-05-04 13:05] LABS: Hematocrit 37.2 % (37.0-47.0); Hemoglobin 11.9 g/dL (12.0-15.0); Mean Corpuscular Hemoglobin 29.4 pg (26-34); Mean Corpuscular Volume 91.9 fl (80-100); Mean Platelet Volume 9.4 fl (7.4-10.4); Platelet Count Result 320 k/mm3 (150-375); Red Blood Count 4.05 M/mm3 (4.2-5.4); Red Cell Distribution Width 12.8 % (11.5-14.5); White Blood Count 8.5 K/mm3 (4.5-10.0)
== END 2023-05-04 12:33 | disposition home or self-care (01) ==
PROVIDERS: Visit Provider Student in an Organized Health Care Education/Training Program
DX: N93.9 Abnormal uterine and vaginal bleeding, unspecified (principal)
CPT/HCPCS: 36415; 85027; 86850; 86900; 86901

== ENCOUNTER 2023-05-07 01:04 | Day surgery (SDC) | payer MEDICAID, SELFPAY ==
[2023-04-29 09:06] VITALS: BMI 36.7
--- NOTE | 2023-04-29 09:13 | PC.NURSE ---
Report to the Outpatient Waiting Room, entrance under the green pavilion located off [facility], at time 10:00am on date 05/07/23. Planned Procedure Time: 12:00pm. Time changes happen often and if your time is changed the preop area will call you the afternoon before. - You and your visitor will be asked to self-screen and do not enter if you have any COVID symptoms. - A mask is optional within the hospital at this time. Patients may have clear liquids (water, carbonated beverages, clear teas, apple juice) until 3 hours prior to surgery (09:00am) with a maximum of 20 ounces. - No food from midnight until time of surgery Take the following medications with a SIP of water the morning of surgery: inhaler as needed DO NOT STOP ANY OF YOUR OTHER PRESCRIPTION MEDICATIONS PRIOR TO SURGERY ?EXCEPT THE FOLLOWING Medications to discontinue per physician n/a Please no make-up, nail indonesian, hairspray, perfume, deodorant, or body powder the day of surgery. No jewelry (including any body piercings) or valuables the day of surgery, leave them at home. Please take a shower or bath the night before, or the morning of, surgery with an antibacterial soap. Wear comfortable, loose fitting clothing. - Jewelry must be removed prior to entering the operating room. Rings and piercings that are not removed may be cut off. - The hospital will not accept responsibility for valuables. - Please leave all valuables, including medications, at home the day of surgery. If you are going home after surgery, a licensed team driver must drive you home. - NO public transportation without another adult if you receive anesthesia. - We recommend that an adult stay with you for 24 hours following discharge. - We also recommend that you do not drive, make important decision, drink alcoholic beverages, or take any drugs that were not prescribed by your health care provider for at least 24 hours after your discharge time. Follow any additional instructions given to you from your surgeon. If you or anyone in your household have experienced Covid symptoms in the past week, please notify your surgeon or the nurse liaison at the phone number below for possible testing. Telephone instructions given to PATIENT and asked if any additional questions and then verbalized understanding. Patient advised to call surgeon office or pre surgery nurse liaison [phone] if any additional questions.
--- NOTE | 2023-05-06 08:21 | PM.IMHP ---
H&P: HPI History of Present Illness Date/Time: 05/06/23 08:21 Chief Complaint: abnormal uterine bleeding Narrative: 42-year-old female who presents with abnormal uterine bleeding.? Patient reports a long history of abnormal uterine bleeding.? Patient states she had an endometrial ablation performed in 2018 due to heavy menses.? Patient states her bleeding was controlled for about 1 year then her heavy menses returned.? Patient states she has tried multiple forms of hormonal contraception.? Patient was most recently taking the Depo-Provera shot.? Patient states she was having daily heavy bleeding.? She states her menses were lasting up to 20 days.? Patient had then elected to proceed with hysterectomy for definitive therapy. Review of Systems Cardiovascular: Cardiovascular: Denies chest pain, Denies leg edema, Denies palpitations, Denies dyspnea and Denies dyspnea on exertion Respiratory: Respiratory: Denies cough, Denies dyspnea and Denies dyspnea on exertion Gastrointestinal: Gastrointestinal: Denies abdominal pain, Denies constipation, Denies diarrhea, Denies nausea and Denies vomiting Genitourinary: Genitourinary: Denies hematuria, Denies urinary frequency, Denies dysuria, Denies pelvic pain, Denies urinary incontinence and Denies vaginal discharge Neurologic: Reports system reviewed and no additional complaints, except as documented Psychiatric: Psychiatric: Reports no additional psychiatric complaints Endocrine: Endocrine: Denies palpitations PMFSH Past Medical History Medical History Asthma IBS (irritable colon syndrome) Surgical History Surgical History History of endometrial ablation 12/2019 History of tubal ligation 05/2008 Family History Family History Father Unknown family medical history Mother Smoker in home Grandparent Diabetes mellitus Social History Social History Smoking status: Never smoker Second hand tobacco smoke exposure: Yes (parent) Alcohol intake: current Drinks per week: 1 Alcohol use details: occasionally Substance use: former Substance use type: marijuana Other substance usage details: marijuana use as a young adult Do You Feel Safe in your Home?: Yes Lack of Transportation: No Lack of Food: Never True Current Housing: I Have Housing Concerned About Future Housing: No Difficulty Paying Gas/Electric Bills: No Difficulty Paying for Meds: No Currently Unemployed: No Education: Trade/Vocational Certificate Difficulty w/ Childcare or Family Care: No Living arrangements: with family Occupation/Education: occupation 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 identity (if verbalized by the patient): Female Sexual Orientation (if Verbalized by the Patient): Straight or Heterosexual Spiritual care concerns: No Meds Home Medications and Allergies Home Medications Medication Instructions Recorded Confirmed Type albuterol 90 mcg/actuation aerosol 90 mcg inhalation PRN PRN 04/29/23 04/29/23 History inhaler Shortness Of Breath Allergies Allergy/AdvReac Type Severity Reaction Status Date / Time No Known Allergies Allergy Unknown Verified 04/29/23 09:07 Exam Const: General: no acute distress Eyes: EOM: EOMs intact bilaterally Neck: Neck: supple Thyroid: thyroid normal Chest: Breast/axilla inspection: normal inspection of the breasts Breast/axilla palpation: normal palpation of the breasts, normal palpation of the axillae and no axillary lymphadenopathy Resp: Effort & Inspection: normal respiratory effort Auscultation: clear to auscultation bilaterally Cardio: Rate: regular rate Rhythm: regular rhythm GI: Inspection: non-distended GI Palp: Ye
[2023-05-07] VITALS (11 sets, daily range): BP systolic 96–128; BP diastolic 55–75; PULSE 63–83; RESP 12–20; TEMP 36.4–36.9; O2SAT 92–100
[2023-05-07] MEDS: ACETAMINOPHEN 500 MG TABLET 1000 MG PO (10:03)
[2023-05-07] MEDS: KETOROLAC 15 MG/ML VIAL (*BKC) IV PUSH (10:39)
--- NOTE | 2023-05-07 11:12 | WPDHPUPDATE1 ---
History and Physical Update Update Date/Time: 05/07/23 11:12 History and Physical has been reviewed, including an updated exam of the patient. There are NO changes in the patient's condition. Risks, benefits, and alternatives have been discussed and questions answered. Patient agrees to proceed with procedure. will plan for robotic assisted Total laparoscopic hysterectomy with bilateral salpingectomy
--- NOTE | 2023-05-07 11:15 | WPDANESEPPF ---
Anes - Initial Pre Proc Eval Procedure: Operation Date: 05/07/23 12:00 Proposed Procedures p Robotic Assisted Total Laparoscopic Hysterectomy with Bilateral Salpingectomy - Mamadou Barroso MD Date/Time: 05/07/23 11:15 Surgeon: Mamadou Barroso MD Pre Op Diagnosis: abn uterine bleeding Patient Data Age: 42 Gender: F Height: 1.71 m Weight: 111.1 kg Last Vital Signs Temp 36.6 C 05/07/23 10:34 Pulse 83 05/07/23 10:34 Resp 16 05/07/23 10:34 BP 121/75 05/07/23 10:34 Pulse Ox 99 05/07/23 10:34 O2 Del Method Room Air 05/07/23 10:34 Allergies Allergy/AdvReac Type Severity Reaction Status Date / Time No Known Allergies Allergy Unknown Verified 05/07/23 09:58 Home Medications Medication Instructions Recorded Confirmed Type albuterol 90 mcg/actuation aerosol 90 mcg inhalation PRN PRN 04/29/23 05/07/23 History inhaler Shortness Of Breath cyclobenzaprine 10 mg tablet 10 mg PO TID PRN Pain 05/07/23 05/07/23 History Patient hx anesthesia problems: none Family hx anesthesia problems: none Results Review: All pre-operative results and documents have been reviewed as part of the pre-operative evaluation. [facility] Past Medical History Medical History Asthma IBS (irritable colon syndrome) Surgical History Surgical History History of endometrial ablation 12/2019 History of tubal ligation 05/2008 Family History Family History Father Unknown family medical history Mother Smoker in home Grandparent Diabetes mellitus Social History Social History Smoking status: Never smoker Second hand tobacco smoke exposure: Yes (parent) Alcohol intake: current Drinks per week: 1 Alcohol use details: occasionally Substance use: former Substance use type: marijuana Other substance usage details: marijuana use as a young adult Do You Feel Safe in your Home?: Yes Lack of Transportation: No Lack of Food: Never True Current Housing: I Have Housing Concerned About Future Housing: No Difficulty Paying Gas/Electric Bills: No Difficulty Paying for Meds: No Currently Unemployed: No Education: Trade/Vocational Certificate Difficulty w/ Childcare or Family Care: No Living arrangements: with family Occupation/Education: occupation 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 identity (if 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 by the patient): Female Sexual Orientation (if Verbalized by the Patient): Straight or Heterosexual Spiritual care concerns: No Anes - Eval Final PreProcedure Day of Procedure 05/07/23 11:15 Patient weight: obese Heart: regular rate and rhythm Lungs: clear to auscultation Airway: Mallampati scale class II Neurological: alert and oriented Last oral intake: >/= 8 hours ASA classification: II Emergent: no Anesthetic plan: proceed Anesthesia type and monitoring: general ETT and standard monitoring Results Review: All pre-operative results and documents have been reviewed as part of the pre-operative evaluation. Informed Consent: The patient's anesthetic plan and its attendant risks and benefits were discussed with the patient/family/POA. Questions were solicited and answers provided to the satisfaction of the patient/family/POA.
[2023-05-07] MEDS: LACTATED RINGERS 1,000 ML 30 ML IV CONT ×2 (11:26→13:34)
[2023-05-07] MEDS: ceFAZolin 2 GM/D5W 50 ML 2 GM/50 ML BAG IVPB (12:03)
[2023-05-07] MEDS: LIDO 1%/EPINEPHRINE 1:100,000 50 ML VIAL 20 ML INFILTRATE (12:25)
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
[2023-05-07] MEDS: fentaNYL CITRATE INJ (*CRX) 100 MCG/2 ML VIAL 25 MCG IV PUSH ×6 (14:15→14:36)
--- NOTE | 2023-05-07 15:11 | ADMGEN ---
This patient, Cain Chase, was admitted to OB 2nd Floor Room 288-00. Patient/family oriented to hospital policies and general routines including ID bracelet, bed and alarms, visiting hours, pain management, procedures, bathroom and other care routines, personal items, smoking policy, room service/diet, and visiting hours. Information on how to activate the Rapid Response Team has been discussed. Patient/Family are encouraged to report perceived risks to care and to ask questions if they do not understand what they are told or what they should do.
[2023-05-07] MEDS: KETOROLAC 30 MG/ML VIAL (*BKC) IV PUSH (15:35)
[2023-05-07] MEDS: SIMETHICONE 80 MG TAB.CHEW PO (17:42)
[2023-05-07] MEDS: ONDANSETRON INJ 4 MG/2 ML VIAL IV PUSH (18:19)
[2023-05-07] MEDS: HYDROcodone/acetaminophen (*CRX) 5-325 MG TABLET 1 TAB PO (18:55)
[2023-05-07] MEDS: SENNA/DOCUSATE SODIUM TABLET 2 TAB PO (19:03)
[2023-05-07] MEDS: HYDROcodone/acetaminophen (*CRX) 10-325 MG TABLET 1 TAB PO (23:35)
[2023-05-07] MEDS: IBUPROFEN 600 MG TABLET PO (23:35)
[2023-05-08 04:26] VITALS: BP 100/56; PULSE 79; RESP 18; TEMP 37; O2SAT 98
[2023-05-08] MEDS: HYDROcodone/acetaminophen (*CRX) 5-325 MG TABLET 1 TAB PO ×2 (04:34→07:38)
[2023-05-08 04:53] LABS: Basophils Percent Auto 0.1 % (0.2-1.2); Hematocrit 34.9 % (37.0-47.0); Hemoglobin 11.2 g/dL (12.0-15.0); Immature Granulocyte Absolute 0.04 K/mm3 (0.00-0.031); Immature Granulocyte Percent A 0.3 % (0-0.5); Lymphocytes Absolute Auto 1.11 K/mm3 (0.9-3.2); Lymphocytes Percent Auto 8.2 % (18.3-44.2); Mean Corpuscular HGB Conc 32.1 g/dl (32-36); Mean Corpuscular Hemoglobin 29.8 pg (26-34); Mean Corpuscular Volume 92.8 fl (80-100); Mean Platelet Volume 10.1 fl (7.4-10.4); Monocytes Absolute Auto 0.8 K/mm3 (0.1-0.6); Monocytes Percent Auto 5.9 % (2.6-8.5); Neutrophils Absolute Auto 11.5 K/mm3 (1.3-6.7); Neutrophils Percent Auto 85.5 % (45.5-73.1); Platelet Count Result 275 k/mm3 (150-375); Red Blood Count 3.76 M/mm3 (4.2-5.4); White Blood Count 13.5 K/mm3 (4.5-10.0)
[2023-05-08 05:02] LABS: Anion Gap 2 mmol/L (4-12); Blood Urea Nitrogen 9 mg/dL (7-17); Calcium 8.7 mg/dL (8.4-10.2); Carbon Dioxide 26 mmol/L (22-30); Chloride 107 mmol/L (98-107); Estimated CRCL calculation 119 ml/min; Estimated Glomerular Filt Rate > 60; Glucose 110 mg/dL (65-110); Potassium 3.8 mmol/L (3.4-5.0); Sodium 135 mmol/L (137-145)
[2023-05-08 07:20] VITALS: BP 100/54; PULSE 81; RESP 16; TEMP 37.3; O2SAT 97
--- NOTE | 2023-05-08 07:30 | P.PNAN_ITS ---
Anes - Prog Note Post-Op Date/Time: 05/08/23 07:30 Cardiovascular status: normal Respiratory status: normal Airway patency: baseline Mental status: baseline Post-Op hydration status: normal Vital Signs: Last Vital Signs Temp 37.0 C 05/08/23 04:26 Pulse 79 05/08/23 04:26 Resp 18 05/08/23 04:26 BP 100/56 L 05/08/23 04:26 Pulse Ox 98 05/08/23 04:26 O2 Del Method Room Air 05/08/23 04:26 O2 Flow Rate 8 05/07/23 13:45 Pain Score (VAS): 0 I/O: Intake & Output 05/07/23 05/07/23 05/08/23 15:59 23:59 07:59 Intake Total 1050 200 240 Output Total 1250 360 Balance 1050 -1050 -120 Laboratory Tests 05/08/23 04:10 05/08/23 04:10 05/08/23 04:10 WBC 13.5 H RBC 3.76 L Hgb 11.2 L Hct 34.9 L MCV 92.8 MCH 29.8 MCHC 32.1 RDW 13.0 Plt Count 275 MPV 10.1 Immature Gran % (Auto) 0.3 Neut % (Auto) 85.5 H Lymph % (Auto) 8.2 L [place] % (Auto) 5.9 Eos % (Auto) 0.0 Baso % (Auto) 0.1 L Lymph # (Auto) 1.11 [place] # (Auto) 0.8 H Eos # (Auto) 0.0 Baso # (Auto) 0.0 Abs Immat Gran (auto) 0.04 H Absolute Neuts (auto) 11.5 H Absolute Nucleated RBC 0.000 Nucleated RBC % 0.0 Sodium 135 L Potassium 3.8 Chloride 107 Carbon Dioxide 26 Anion Gap 2 L BUN 9 Creatinine 0.70 Estim Creat Clear Calc 119 Estimated GFR > 60 Glucose 110 Calcium 8.7 Post-procedural complaints: none Patient Feedback: Patient satisfied with anesthetic care.
[2023-05-08] MEDS: IBUPROFEN 600 MG TABLET PO (07:38)
--- NOTE | 2023-05-08 07:47 | P.DS_ITS ---
DS: Admitting Diagnosis Discharge Date 05/08/23 Admitting Diagnosis abnormal uterine bleeding pelvic pain DS: Summary Hospital Course Hospital Course: Cain Chase was admitted after robotic assisted total laparoscopic hysterectomy and bilateral salpingectomy for abnormal uterine bleeding and pelvic pain. The above procedure was performed with no complications. She is doing well post op. She states her pain is well controlled with PO medications. She reports minimal bleeding. She is ambulating up to the chair. Her louise catheter was removed. She is tolerating PO without N/V. She reports passing flatus. Status at Discharge Overall status at discharge: patient is progressing back to baseline Time Spent with Patient Time attestation: Total time spent providing and/or coordinating discharge services: Time spent: Less than 30 minutes Exam Const: General: comfortable and no acute distress Limitations: no limitations Resp: Effort & Inspection: normal respiratory effort Auscultation: clear to auscultation bilaterally Cardio: Rate: regular rate Rhythm: regular rhythm GI: Inspection: non-distended GI Palp: Yes Soft to palpation, Yes Tenderness to palpation present (GI) (milder tenderness to deep palpation) and No Guarding due to palpation present (GI) Auscultation: normal bowel sounds Other: incisions C/D/I covered with dermabond Urinary Catheter: Urinary Catheter: urine clear Skin: General skin exam: normal color Extrem: General: normal to inspection Psych: Mental Status: mental status grossly normal Affect: normal affect DS: Data Data Completed and Pending Pending studies at discharge: Pending at discharge 05/07/23 13:26 Surgical [PTH] Routine Labs on day of discharge: Labs from last 24 hours 05/08/23 04:10 WBC 13.5 H RBC 3.76 L Hgb 11.2 L Hct 34.9 L MCV 92.8 MCH 29.8 MCHC 32.1 RDW 13.0 Plt Count 275 MPV 10.1 Immature Gran % (Auto) 0.3 Neut % (Auto) 85.5 H Lymph % (Auto) 8.2 L [place] % (Auto) 5.9 Eos % (Auto) 0.0 Baso % (Auto) 0.1 L Lymph # (Auto) 1.11 [place] # (Auto) 0.8 H Eos # (Auto) 0.0 Baso # (Auto) 0.0 Abs Immat Gran (auto) 0.04 H Absolute Neuts (auto) 11.5 H Absolute Nucleated RBC 0.000 Nucleated RBC % 0.0 Sodium 135 L Potassium 3.8 Chloride 107 Carbon Dioxide 26 Anion Gap 2 L BUN 9 Creatinine 0.70 Estim Creat Clear Calc 119 Estimated GFR > 60 Glucose 110 Calcium 8.7 Discharge Plan Discharge Patient Disposition: Home, Self-Care Patient Instructions: Hysterectomy (DC) Stand Alone Forms: General Discharge Instructions Follow-up/Referrals: Mamadou Barroso MD [Physician] - 2 Weeks Discharge Medications: New oxycodone-acetaminophen 5-325 mg tablet 1 tablet PO Q6H PRN (Reason: pain) Qty: 28 0RF ibuprofen 600 mg tablet 600 mg PO Q6H PRN (Reason: pain) Qty: 30 0RF Continued albuterol 90 mcg/actuation Aerosol 90 mcg INHALATION PRN PRN (Reason: Shortness Of Breath) cyclobenzaprine 10 mg tablet 10 mg PO TID PRN (Reason: Pain)
== END 2023-05-08 11:00 | disposition home or self-care (01) ==
LOC: ANHSURGERY 09:48 → ANHOB2 15:30
PROVIDERS: Visit Provider Student in an Organized Health Care Education/Training Program
PROC: (CPT 58571; principal; 2023-05-07 12:00)
DX: D25.9 Leiomyoma of uterus, unspecified (principal); N93.9 Abnormal uterine and vaginal bleeding, unspecified; N88.8 Other specified noninflammatory disorders of cervix uteri; N80.03 Adenomyosis of the uterus; N83.8 Other noninflammatory disorders of ovary, fallopian tube and broad ligament; J45.909 Unspecified asthma, uncomplicated; Z79.51 Long term (current) use of inhaled steroids; E66.9 Obesity, unspecified; Z68.37 Body mass index [BMI] 37.0-37.9, adult
CPT/HCPCS: 58571; S2900; 36415; 80048; 85025; 88307; 99199; A9270; J0690; J1100; J1170; J1885; J2250; J2405; J2704; J3010; J7030; J7120

== ENCOUNTER 2023-06-12 14:59 | Emergency (ER) | payer OTHER, SELFPAY ==
--- NOTE | ~2023-06-12 | XR_ITS ---
EXAMINATION: XR chest 2V DATE: 06/12/2023 16:23 INDICATION: Chest pain. Dizziness. TECHNIQUE: Frontal and lateral views of the chest were obtained. COMPARISON: Chest 2 views 01/13/2023 FINDINGS: There is no pneumonia, pleural effusion, or pneumothorax. The heart size is normal. IMPRESSION: 1. No acute cardiopulmonary disease. Reviewed, dictated and finalized at location E.
--- NOTE | 2023-06-12 15:06 | ECG_ITS ---
SEE SCANNED COPY FOR CONFIRMED REPORT MTDD
[2023-06-12 15:27] VITALS: BP 112/66; PULSE 78; RESP 18; TEMP 36.4; O2SAT 100
[2023-06-12 15:55] LABS: Basophils Percent Auto 0.3 % (0.2-1.2); Eosinophils Absolute Auto 0.1 K/mm3 (0-0.3); Eosinophils Percent Auto 1.1 % (0-4.4); Hematocrit 38.6 % (37.0-47.0); Hemoglobin 12.3 g/dL (12.0-15.0); Immature Granulocyte Absolute 0.03 K/mm3 (0.00-0.031); Immature Granulocyte Percent A 0.3 % (0-0.5); Lymphocytes Absolute Auto 2.33 K/mm3 (0.9-3.2); Lymphocytes Percent Auto 24.6 % (18.3-44.2); Mean Corpuscular HGB Conc 31.9 g/dl (32-36); Mean Corpuscular Hemoglobin 29.4 pg (26-34); Mean Corpuscular Volume 92.3 fl (80-100); Mean Platelet Volume 9.2 fl (7.4-10.4); Monocytes Absolute Auto 0.6 K/mm3 (0.1-0.6); Monocytes Percent Auto 6.1 % (2.6-8.5); Neutrophils Absolute Auto 6.4 K/mm3 (1.3-6.7); Neutrophils Percent Auto 67.6 % (45.5-73.1); Platelet Count Result 347 k/mm3 (150-375); Red Blood Count 4.18 M/mm3 (4.2-5.4); Red Cell Distribution Width 13.1 % (11.5-14.5); White Blood Count 9.5 K/mm3 (4.5-10.0)
[2023-06-12 16:05] LABS: Alanine Aminotransferase 19 U/L (6-35); Albumin Level 4.6 g/dL (3.5-5.1); Alkaline Phosphatase 80 U/L (38-126); Anion Gap 9 mmol/L (4-12); Aspartate Amino Transferase 22 U/L (14-36); Bilirubin,Total 0.5 mg/dL (0.2-1.3); Blood Urea Nitrogen 9 mg/dL (7-17); Calcium 9.4 mg/dL (8.4-10.2); Carbon Dioxide 24 mmol/L (22-30); Chloride 106 mmol/L (98-107); Estimated CRCL calculation 94 ml/min; Estimated Glomerular Filt Rate > 60; Glucose 106 mg/dL (65-110); Lipase 80 U/L (23-300); Potassium 3.7 mmol/L (3.4-5.0); Sodium 139 mmol/L (137-145)
[2023-06-12 16:06] LABS: Prothrombin Time 13.3 Seconds (11.1-14.7)
[2023-06-12 16:07] LABS: Partial Thromboplastin Time 31.7 Seconds (22.3-36.8)
[2023-06-12 16:16] LABS: Troponin I < 0.012 ng/mL (0.000-0.034)
--- NOTE | 2023-06-12 17:37 | ED.DIZZY ---
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 Patient reports that they were donning PE when she started to feel woozy and lightheaded. She states that she had nausea, shortness of breath and then shortly after had chest pain. She was unsure she was having an asthma attack. Patient reports that she is lying in the bed she does not feel lightheaded anymore but still has chest pain. It is central and does not radiate. She does note that she had a similar episode of lightheadedness when she was having the blood drawn by our tech here. Denies any history of blood clot, leg swelling. Denies vertigo, numbness, weakness, head injury, LOC, abdominal pain, vomiting, sweats. Related Data Home Medications Medication Instructions Recorded Confirmed albuterol 90 mcg/actuation aerosol 90 mcg inhalation PRN PRN 04/29/23 05/21/23 inhaler Shortness Of Breath cyclobenzaprine 10 mg tablet 10 mg PO TID PRN Pain 05/07/23 05/21/23 montelukast 10 mg tablet mg PO 05/21/23 05/21/23 Allergies Allergy/AdvReac Type Severity Reaction Status Date / Time No Known Allergies Allergy Unknown Verified 05/21/23 09:43 Review of Systems Review of Systems: All systems as dictated in [facility] Past Medical History Medical History (Updated 06/13/23 @ 00:00 by Prakash Hernadez) Asthma IBS (irritable colon syndrome) Surgical History Surgical History (Updated 05/21/23 @ 09:44 by Rut Rascon CMA) H/O: hysterectomy History of endometrial ablation 12/2019 History of tubal ligation 05/2008 Family History Family History Father Unknown family medical history Mother Smoker in home Grandparent Diabetes mellitus Social History Social History Smoking status: Never smoker Second hand tobacco smoke exposure: Yes (parent) Alcohol intake: current Drinks per week: 1 Alcohol use details: occasionally Substance use: former Substance use type: marijuana Other substance usage details: marijuana use as a young adult Do You Feel Safe in your Home?: Yes Lack of Transportation: No Lack of Food: Never True Current Housing: I Have Housing Concerned About Future Housing: No Difficulty Paying Gas/Electric Bills: No Difficulty Paying for Meds: No Currently Unemployed: No Education: Trade/Vocational Certificate Difficulty w/ Childcare or Family Care: No Living arrangements: with family Occupation/Education: occupation 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 HEAD: Normocephalic, atraumatic. EYES: PERRLA and EOMI. ENT: Nares clear, no rhinorrhea or epistaxis. Mucous membranes moist. Oropharynx without tonsillar hypertrophy exudate or other lesions. NECK: Supple. No adenopathy or masses. CHEST: No respiratory distress. Clear to auscultation. No wheezes rales or rhonchi HEART: Regular rate and rhythm. No murmur heard. Normal peripheral pulses. ABDOMEN: Soft, nontender, nondistended, normal active bowel sounds. MSK: Normal range of motion. No edema. SKIN: Warm, dry, no rash. NEURO: Alert and oriented x3. No focal deficits. PSYCH: Normal mood and affect. Course Vital Signs Vital signs: Vital Signs Temperature 97.6 F 06/12/23 15:27 Pulse Ra
[2023-06-12] MEDS: SODIUM CHLORIDE 0.9% IV 1,000 ML 999 ML IV CONT (18:00)
[2023-06-12 18:05] VITALS: PULSE 65
[2023-06-12 18:14] LABS: D Dimer 0.35 ug/mL (<0.48)
[2023-06-12 19:12] LABS: Troponin I < 0.012 ng/mL (0.000-0.034)
[2023-06-12 20:06] VITALS: BP 124/76; PULSE 79; RESP 15; O2SAT 100
== END 2023-06-12 20:08 | disposition home or self-care (01) ==
PROVIDERS: Emergency Medicine; Emergency Provider Physician Assistant; PCP Emergency Medicine
DX: R55 Syncope and collapse (principal); J45.909 Unspecified asthma, uncomplicated; K58.9 Irritable bowel syndrome, unspecified; Z90.710 Acquired absence of both cervix and uterus; Z77.22 Contact with and (suspected) exposure to environmental tobacco smoke (acute) (chronic)
CPT/HCPCS: 36415; 71046; 80053; 83690; 84484; 85025; 85380; 85610; 85730; 93005; 96360; 99284; J7030

== ENCOUNTER 2023-07-27 11:44 | Outpatient (CLI) | payer MEDICAID, SELFPAY ==
[2023-07-27 12:37] LABS: Iron 104 ug/dL (37-170)
[2023-07-27 12:47] LABS: Percent Iron Saturation 33 % (20-50)
[2023-07-27 12:57] LABS: Free T4 Free Thyroxine 1.04 ng/mL (0.78-2.19)
[2023-07-27 12:59] LABS: Creatinine Urine 108.3 mg/dL
[2023-07-27 13:18] LABS: MALB Creatinine Ratio < 5.5 mg/g (0-30); Microalbumin Urine Random < 6.0 mg/L (0-16.7)
[2023-07-27 13:37] LABS: Vitamin D 25 Hydroxy 14.3 ng/mL
[2023-07-27 13:40] LABS: Cholesterol 163 mg/dL (0-200); HDL Direct 53 mg/dL; Triglycerides 77 mg/dL (<150)
[2023-07-27 13:51] LABS: LDL Cholesterol Direct 90 mg/dL
[2023-07-27 14:11] LABS: Thyroid Stimulating Hormone 0.915 uIU/mL (0.465-4.680)
[2023-07-27 14:47] LABS: Folic Acid 13.1 ng/mL (2.76->20)
[2023-07-27 15:04] LABS: Hemoglobin A1C 5.4 % (<5.7)
== END 2023-07-27 11:45 | disposition home or self-care (01) ==
LOC: ANHLAB 11:46
PROVIDERS: PCP Emergency Medicine; Visit Provider Emergency Medicine
DX: Z00.00 Encounter for general adult medical examination without abnormal findings (principal); J32.9 Chronic sinusitis, unspecified
CPT/HCPCS: 36415; 77063; 77067; 80061; 82043; 82306; 82607; 82746; 83036; 83540; 83550; 84439; 84443

== ENCOUNTER 2023-07-27 13:34 | Outpatient (CLI) | payer MEDICAID, SELFPAY ==
--- NOTE | ~2023-07-27 | MM_ITS ---
EXAMINATION: MM screening christianne BI w [facility] HISTORY: Screening TECHNIQUE: Craniocaudal and mediolateral oblique 3-D tomosynthesis images were obtained and synthetic 2-D images were generated. CAD analysis was submitted and interpreted. COMPARISON: No prior mammogram is available for comparison at this institution. BREAST PARENCHYMAL COMPOSITION: Not dense: There are scattered areas of fibroglandular density. FINDINGS: There is a focal periareolar mass of the left breast. There are associated coarse calcifica tions. There is no mammographic evidence for malignancy in the right breast. IMPRESSION: 1. Focal periareolar left breast mass. 2. Additional mammographic views and possible breast ultrasound are recommended. BI-RADS Category 0: Incomplete: Needs additional imaging evaluation. Reviewed, dictated and finalized at location B. IMPRESSION: 1. Focal periareolar left breast mass. 2. Additional mammographic views and possible breast ultrasound are recommended . BI-RADS Category 0: Incomplete: Needs additional imaging evaluation.
== END 2023-07-27 13:35 | disposition home or self-care (01) ==
LOC: ANHIMG 13:36
PROVIDERS: PCP Emergency Medicine; Visit Provider Emergency Medicine
DX: Z12.31 Encounter for screening mammogram for malignant neoplasm of breast (principal); R92.8 Other abnormal and inconclusive findings on diagnostic imaging of breast
CPT/HCPCS: 77063; 77067

== ENCOUNTER 2023-08-06 01:36 | Emergency (ER) | payer MEDICAID, SELFPAY ==
[2023-08-06] VITALS (9 sets, daily range): BP systolic 129–132; BP diastolic 72–80; PULSE 96–104; RESP 15–18; TEMP 37.3; O2SAT 97–100
--- NOTE | ~2023-08-06 | XR_ITS ---
Portable chest x-ray Comparison: 06/12/2023 Clinical History: Cough Findings: Lungs are clear, without focal consolidation or pleural effusion. Cardiomediastinal silho uette is stable. Bones and soft tissues are unremarkable. Impression: Normal chest. Reviewed, dictated and finalized at [facility]. Impression: Normal chest.
[2023-08-06 02:26] LABS: Influenza A QL RT-PCR Negative (Negative); Influenza B QL RT-PCR Negative (Negative); RSV RNA, RT-PCR Negative (Negative); SARS-CoV-2 RNA PCR Positive (Negative)
--- NOTE | 2023-08-06 02:32 | ED.GENADULT ---
HPI - General Adult General Chief complaint: Upper Respiratory Infection Stated complaint: upper resp infection Time Seen by Provider: 08/06/23 02:20 History of Present Illness HPI narrative: He is a 43-year-old female who presents emergency department with chief complaint of upper respiratory infection. 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 Patient reports that she has body aches she has cough and has nasal congestion. The patient states she has a uncomfortable feeling in her chest and reports that due to her asthma she has had to use her inhaler more frequently. Patient reports she has not taken any Tylenol reports that she would like to be tested for COVID Related Data Home Medications Medication Instructions Recorded Confirmed albuterol 90 mcg/actuation aerosol 90 mcg inhalation PRN PRN 04/29/23 07/22/23 inhaler Shortness Of Breath montelukast 10 mg tablet mg PO 05/21/23 07/22/23 Allergies Allergy/AdvReac Type Severity Reaction Status Date / Time No Known Allergies Allergy Unknown Verified 07/22/23 10:40 Review of Systems Review of Systems: A 10 system review of systems was completed on the patient and is negative except for what is stated in the HPI. Nursing and ancillary documentation was reviewed. [facility] Past Medical History Medical History Asthma IBS (irritable colon syndrome) Vaginal discharge Surgical History Surgical History H/O: hysterectomy History of endometrial ablation 12/2019 History of tubal ligation 05/2008 Family History Family History Father Unknown family medical history Mother Smoker in home Grandparent Diabetes mellitus Social History Social History Smoking status: Never smoker Second hand tobacco smoke exposure: Yes (parent) Alcohol intake: current Drinks per week: 1 Alcohol use details: occasionally Substance use: former Substance use type: marijuana Other substance usage details: marijuana use as a young adult Do You Feel Safe in your Home?: Yes Lack of Transportation: No Lack of Food: Never True Current Housing: I Have Housing Concerned About Future Housing: No Difficulty Paying Gas/Electric Bills: No Difficulty Paying for Meds: No Currently Unemployed: No Education: Trade/Vocational Certificate Difficulty w/ Childcare or Family Care: No Living arrangements: with family Occupation/Education: occupation 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 HEAD: Normocephalic, atraumatic. EYES: PERRLA and EOMI. ENT: Nares clear, no rhinorrhea or epistaxis. Mucous membranes moist. NECK: Supple. CHEST: Clear to auscultation. No respiratory distress. HEART: Regular rate and rhythm. No murmur heard. Normal peripheral pulses. ABDOMEN: Soft, nontender, nondistended, normal active bowel sounds. EXTREMITIES: Normal range of motion. No edema. SKIN: Warm, dry, no rash. NEURO: No focal deficits. Alert and oriented x3. PSYCH: Normal mood and affect. Course Vital Signs Vital signs: Vital Signs Temperature 37.3 C 08/06/23 01:41 Pulse Rate 104 H 08/06/23 01:41 Respiratory Rate 15 08/06/23 01:41 Blood Pressure 132/80 08/06/23 01:41 Pulse Oximetry 97 08/06/23 01:41 Oxygen Delivery Room Air 08/06/23 01:41 Temperature 37.3 C 08/06/23 01:41 Pulse Rate 97 08/06/23 02:46 Respirato
[2023-08-06] MEDS: ACETAMINOPHEN 500 MG TABLET 1000 MG PO (02:34)
[2023-08-06] MEDS: IPRATROPIUM 0.5 MG/ALBUTEROL SULFATE 2.5 MG AMPUL.NEB 3 ML INHALATION (02:39)
[2023-08-06 03:06] LABS: Appearance Urine Clear (Clear); Bacteria Urine Rare /hpf; Bilirubin Urine Negative (Negative); Blood Urine Non-Hemolyzed Trace (Negative); Color Urine Yellow (Yellow); Glucose Urine UA Negative (Negative); Ketones Urine Negative (Negative); Leukocyte Esterase Ur 2+ LEU/UL (Negative); Need Manual Microscopic Reviewed; Nitrate Urine Negative (Negative); Non Pathogenic Casts 0-2; Protein Urine Negative (Negative); Squamous Epithelial Cell Urine None Seen /hpf (Few); Urobilinogen Urine 0.2 mg/dL (<2.0); WBC Urine 0-5 /hpf (0-3); pH Urine 7.5 (5.0-9.0)
[2023-08-06 03:08] LABS: Add Urine Microscopic? NO
== END 2023-08-06 03:26 | disposition home or self-care (01) ==
PROVIDERS: Emergency Provider Emergency Medicine; PCP Emergency Medicine
DX: U07.1 COVID-19 (principal)
CPT/HCPCS: 71045; 81003; 87637; 94640; 99283; A9270

== ENCOUNTER 2023-09-06 14:13 | Emergency (ER) | payer OTHER, SELFPAY ==
[2023-09-06 14:37] VITALS: BP 112/65; PULSE 79; RESP 18; TEMP 36.9; O2SAT 99
[2023-09-06 15:36] VITALS: BP 113/73; PULSE 72; RESP 16; O2SAT 99
[2023-09-06 15:46] VITALS: BP 115/74; O2SAT 97
--- NOTE | 2023-09-06 15:46 | ED.BACK ---
HPI - Back Pain/Injury General Chief Complaint: Back Pain/Injury Stated Complaint: lower back pain Time Seen by Provider: 09/06/23 15:32 Source: patient and RN notes reviewed Mode of arrival: ambulatory Limitations: no limitations History of Present Illness HPI Narrative: This is a 43 year old female with history of chronic back pain who presents for evaluation of low back pain. She states she is having a flare up of her chronic low back pain. 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 She reports this morning she woke up feeling stiff with difficulty getting out of bed. She reports she used a lidocaine patch without relief so she came to ER. She has not taken anything else for her pain. She reports pain intermittent radiates down her left leg. She denies numbness. She denies urinary incontinence, retention, dysuria, abdominal pain, nausea, vomiting or fever. She rates pain 4/10 at rest but it increases to 7/10 with ambulation. Related Data Home Medications Medication Instructions Recorded Confirmed albuterol 90 mcg/actuation aerosol 90 mcg inhalation PRN PRN 04/29/23 07/22/23 inhaler Shortness Of Breath montelukast 10 mg tablet mg PO 05/21/23 07/22/23 Allergies Allergy/AdvReac Type Severity Reaction Status Date / Time No Known Allergies Allergy Unknown Verified 09/06/23 14:40 Review of Systems Review of Systems: All systems reviewed & are unremarkable except as noted in HPI and below PMFSH Past Medical History Medical History Asthma IBS (irritable colon syndrome) Vaginal discharge Surgical History Surgical History H/O: hysterectomy History of endometrial ablation 12/2019 History of tubal ligation 05/2008 Family History Family History Father Unknown family medical history Mother Smoker in home Grandparent Diabetes mellitus Social History Social History Smoking status: Never smoker Second hand tobacco smoke exposure: Yes (parent) Alcohol intake: current Drinks per week: 1 Alcohol use details: occasionally Substance use: former Substance use type: marijuana Other substance usage details: marijuana use as a young adult Do You Feel Safe in your Home?: Yes Lack of Transportation: No Lack of Food: Never True Current Housing: I Have Housing Concerned About Future Housing: No Difficulty Paying Gas/Electric Bills: No Difficulty Paying for Meds: No Currently Unemployed: No Education: Trade/Vocational Certificate Difficulty w/ Childcare or Family Care: No Living arrangements: with family Occupation/Education: occupation 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 identity (if verbalized by the patient): Female Sexual Orientation (if Verbalized by the Patient): Straight or Heterosexual Spiritual care concerns: No Exam Const: General: no acute distress and alert Nutritional Appearance: well nourished and obese Orientation/consciousness: patient oriented x3 HENMT: Head: normal to inspection Eyes: EOM: EOMs intact bilaterally Resp: Effort & Inspection: normal respiratory effort Auscultation: clear to auscultation bilaterally Cardio: Rate: regular rate Rhythm: regular rhythm Heart sounds: no murmurs GI: GI Palp: Yes Soft to palpation, No Tenderness to palpation present (GI), No Guarding due to palpation present (GI) and No Rigid due to palpation Auscultation: normal bowel sounds : General: Yes no CVA tenderness Back/Spine/Pelvis: Back: no CVA tenderness Thoracic/Lumbar Spine: No thoracic spinal tenderness and No lumbar spinal tenderness Skin: General skin exam: normal color Rashes: no rashes Wounds: no wounds Neuro: General: patient oriented x3, moves all extremities and CN's II-XI intact bilaterally
[2023-09-06] MEDS: KETOROLAC (*BKC) 60 MG/2 ML VIAL IM (15:56)
[2023-09-06 16:40] VITALS: BP 109/79; PULSE 76; RESP 17; O2SAT 100
== END 2023-09-06 16:41 | disposition home or self-care (01) ==
PROVIDERS: Emergency Provider General Practice; PCP Emergency Medicine
DX: M54.50 Low back pain, unspecified (principal); G89.29 Other chronic pain; J45.909 Unspecified asthma, uncomplicated
CPT/HCPCS: 96372; 99283; J1885

== ENCOUNTER 2024-01-27 13:02 | Emergency (ER) | payer SELFPAY ==
[2024-01-27 13:20] VITALS: BP 120/69; PULSE 76; RESP 16; TEMP 36.3; O2SAT 99
--- NOTE | 2024-01-27 13:20 | ED_ITS ---
HPI - URI/Sore Throat General Chief Complaint: Upper Respiratory Infection Stated Complaint: throat hurts,bodyaches Time Seen by Provider: 01/27/24 13:20 Source: patient Mode of arrival: ambulatory Limitations: no limitations History of Present Illness HPI Narrative: 43 yo F presents with c/o runny nose, nasal congestion, cough and fatigue for 2 days. AFebrile. Not taking any OTC meds to treat symptoms. All systems reviewed and negative except as noted above. Related Data Home Medications ?Medication ?Instructions ?Recorded ?Confirmed ?Last Taken ?Type albuterol 90 mcg/actuation aerosol 90 mcg inhalation PRN PRN 04/29/23 01/27/24 05/06/23 History inhaler Shortness Of Breath montelukast 10 mg tablet 10 mg PO QPM 05/21/23 01/27/24 Unknown History cetirizine 10 mg tablet 10 mg PO DAILY 01/27/24 01/27/24 Unknown History fluticasone propionate 50 2 spray intranasal DAILY 01/27/24 01/27/24 Unknown History mcg/actuation nasal spray,suspension gabapentin 300 mg capsule 300 mg PO Q8H 01/27/24 01/27/24 Unknown History meloxicam 15 mg tablet 15 mg PO DAILY 01/27/24 01/27/24 Unknown History Allergies Allergy/AdvReac Type Severity Reaction Status Date / Time No Known Allergies Allergy Unknown Verified 01/27/24 13:05 Review of Systems Review of Systems: CONSTITUTIONAL: Denies fever, chills, or sweats. Reports fatigue. EYES: Denies visual changes, redness, or discharge. ENT: Reports rhinorrhea, congestion. Denies sore throat, or otalgia. CARDIOVASCULAR: Denies chest pain, palpitations, or edema. RESPIRATORY: reports cough. Denies dyspnea. GASTROINTESTINAL: Denies abdominal pain, nausea, vomiting, or diarrhea. GENITOURINARY: Denies dysuria or hematuria. SKIN: Denies rash or itching. MUSCULOSKELETAL: Denies back pain, joint pain, or myalgia. NEUROLOGIC: Denies headache, numbness, or weakness. PSYCHIATRIC: Denies anxiety or depression. All other systems reviewed are negative, except as documented in HPI. [facility] Past Medical History Medical History Asthma IBS (irritable colon syndrome) Vaginal discharge Surgical History Surgical History H/O: hysterectomy History of endometrial ablation 12/2019 History of tubal ligation 05/2008 Family History Family History Father Unknown family medical history Mother Smoker in home Grandparent Diabetes mellitus Social History Social History Smoking status: Never smoker Second hand tobacco smoke exposure: Yes (parent) Alcohol intake: current Drinks per week: 1 Alcohol use details: occasionally Substance use: former Substance use type: marijuana Other substance usage details: marijuana use as a young adult Do You Feel Safe in your Home?: Yes Lack of Transportation: No Lack of Food: Never True Current Housing: I Have Housing Concerned About Future Housing: No Difficulty Paying Gas/Electric Bills: No Difficulty Paying for Meds: No Currently Unemployed: No Education: Trade/Vocational Certificate Difficulty w/ Childcare or Family Care: No Living arrangements: with family Occupation/Education: occupation 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 There is no relevant family history pertinent to the presenting complaint. Exam Narrative: GENERAL: This is a well-nourished, well-developed patient, in no apparent distress. HEAD: normocephalic, atraumatic. EYES: PERRL. Sclera clear/white. Vision is grossly intact. EARS: External ears normal, auditory canals clear and without drainage, TMs normal without perforation. Hearing grossly intact. NOSE: External nose normal with mild congestion, clear nasal drainage THROAT: Mucous membranes moist, posterior pharynx clear. NECK: Neck supple, non-tender without lymphadenopathy, masses or thyromegaly. CARDIOVASCULAR: Regular rate and rhythm without murmurs, gallops, or rubs. RESPIRATORY: Clear to auscultation. Breath sounds equal bilaterally. No wheezes, rales, or rhonchi. SKIN: warm, Dry, intact with no suspicious lesions or rash, good texture and turgor. NEURO: awake, alert, and oriented to person, place and time. There were no obvious focal neurologic abnormalities. EXTREMITIES: No joint tenderness, effusion, or edema noted. Course Course Level of Care: Express Care Visit Vital Signs Vital signs: Vital Signs Temperature 36.3 C L 01/27/24 13:20 Pulse Rate 76 01/27/24 13:20 Respiratory Rate 16 01/27/24 13:20 Blood Pressure 120/69 01/27/24 13:20 Pulse Oximetry 99 01/27/24 13:20 Oxygen Delivery Room Air 01/27/24 13:20 Temperature 36.3 C L 01/27/24 13:20 Pulse Rate 76 01/27/24 13:20 Respiratory Rate 16 01/27/24 13:20 Blood Pressure 120/69 01/27/24 13:20 Pulse Oximetry 99 01/27/24 13:20 Oxygen Delivery Room Air 01/27/24 13:20 reviewed MDM - URI/Sore Throat MDM Narrative Medical decision making narrative: negative COVID and influenza testing. Patient is well-appearing. Lungs clear to auscultation. Recommend patient take [id number] medications to treat symptoms. Patient is aware of diagnosis, understands and agrees to treatment plan. Anticipatory guidance given. Patient agrees to follow-up as directed and is aware of reasons to seek care at the emergency department. Portions of this record may have been created with voice recognition software Differential Diagnosis Differential diagnosis: Likely upper respiratory infection, sinusitis, viral infection and influenza Discharge Plan Discharge Clinical Impression: Viral upper respiratory tract infection with cough Patient Disposition: Home, Self-Care Condition: Stable Instructions: Antibiotic Form Additional Instructions: your COVID and influenza test were negative today. Your symptoms are viral and may last 10-14 days. Taking [id number] medication to treat her symptoms such as DayQuil NyQuil cold and flu. Drink at least 64 oz of water a day. Place cool mist humidifier in bedroom where you sleep. Follow-up your primary care physician if symptoms are not improving. Patient Language: Burmese Prescriptions: No Action cetirizine 10 mg tablet 10 mg PO DAILY fluticasone propionate 50 mcg/actuation spray,suspension 2 spray INTRANASAL DAILY gabapentin 300 mg capsule 300 mg PO Q8H meloxicam 15 mg tablet 15 mg PO DAILY montelukast 10 mg tablet 10 mg PO QPM albuterol 90 mcg/actuation Aerosol 90 mcg INHALATION PRN PRN (Reason: Shortness Of Breath) Follow-up/Referrals: [facility] [Primary Care Provider] - Stand Alone Forms: Work/School Release IP Time of Disposition: 13:44
[2024-01-27 13:51] LABS: EDCOVIDSCREEN Negative (Negative); EDINFLUASCREEN Negative (Negative); EDINFLUBSCREEN Negative (Negative)
== END 2024-01-27 13:54 | disposition home or self-care (01) ==
PROVIDERS: Emergency Provider Nurse Practitioner Family
DX: J06.9 Acute upper respiratory infection, unspecified (principal); R05.9 Cough, unspecified; Z20.822 Contact with and (suspected) exposure to COVID-19; J45.909 Unspecified asthma, uncomplicated
CPT/HCPCS: 87426; 87804; 99212; G0463

== ENCOUNTER 2024-05-21 09:57 | Outpatient (CLI) | payer BC, MEDICAID, SELFPAY ==
--- NOTE | ~2024-05-21 | MR_ITS ---
MRI of the lumbar spine Clinical History: Degenerative disc disease Technique: Axial T2-weighted images, and sagittal T1-weighted, T2-weighted, and T2 fat-sat images wer e acquired. Findings: There is no fracture or subluxation of the lumbar spine. Vertebral bodies maintain normal h eight and alignment. No suspicious bone marrow signal abnormality seen. There are reactive marrow mt nges about the L4-L5 and L5-S1 disc spaces. At L1-L2 and L2-L3, there is no disc bulge or herniation. There is mild facet hypertrophy T levels. N o spinal canal stenosis or neural foraminal narrowing results. At L3-L4, there is mild disc bulge with mild facet arthropathy. No central canal stenosis or neural f oraminal narrowing. At L4-L5, there is severe degenerative disc narrowing. There is mild disc bulge and minimal facet art hropathy. No central canal stenosis. There is moderate bilateral neural foraminal narrowing. At L5-S1, there is advanced degenerative disc narrowing with diffuse disc bulge and mild facet arthro zaria. No central canal stenosis. There is moderate to severe left neural foraminal narrowing. Right neural foramen preserved. Paravertebral soft tissues are unremarkable. Impression: Moderate degenerative change at L4-L5 and L5-S1, as detailed above. Reviewed, dictated and finalized at location . Impression: Moderate degenerative change at L4-L5 and L5-S1, as detailed above.
--- OUTSIDE RECORDS SUMMARY | 2024-05-21 10:01 | XMS_ITS | Data Portability ---
Author Organization [facility] [place] Address [address] [place] [address] [place] [address] Assessment Encounter Date Assessment Date Assessment LastModified by Organization Details LastModified Time 09/10/2022 09/10/2022 Annual gynecological exam performed. Patient will come back in a year unless there are new symptoms. Not available 09/10/2022 12:42:17 Plan of Treatment Reminders Order Date Submit Date Provider Last Modified By Organization Details Last Modified Time Details Appointments None recorded. Lab None recorded. Referral None recorded. Procedures None recorded. Surgeries None recorded. Imaging MAMMO, screening, bilateral 2022 023 [email or web address] [facility], [address] [address], [place], [address], 14:03:36 US, pelvis 2022 023 [email or web address] [place], [address], [address], [place], [address], 21:26:31 US, transvagina l 2022 023 [email or web address] [place], [address], [address], [place], [address], 3 21:26:31 US, pelvis, complete 2022 023 [place], [address], [place], [address], 3 15:41:26 Medication Orders Diflucan 200 mg tablet 2023 024 [id number], [address], [place], [place], [id number], 4 13:54:35 metronidazo le 500 mg tablet 2023 024 [facility] #85805, [address], [place], [place], [id number], 4 13:54:36 Myfembree 40 mg-1 mg-0.5 mg tablet 2023 024 [email or web address] [facility] #44952, [address] [facility], [place], [place], [id number], 4 11:39:22 Patient TargetsNo targets recorded. Patient InstructionsNo instructions recorded. Reason for Referral None Reported. 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 Elect aaliyah givens rickey d by Jazmine Rascon, CT on 8/4/2 023 at 8:25 AM ----- ----- ----- ----- ----- ----- ----- ----- ----- ----- ----- ----- ----- ----- ----- ----- ----- ---- HPV RESUL TS: HPV mRNA E6/E7 : No HPV mRNA Detec bennie NOTE: This high risk HPV mRNA assay detec ts fourt een high- risk HPV types (16, 18, 31, 33, 35, 39, 45, 51, 52, 56, 58, 59, 66, 68) witho ut diffe renti ation . COMME NT: This speci men was revie wed by a Cytot echno logis t and/o r Patho logis t (as indic ated in this repor t) after evalu ation using the Thinp rep Imagi ng Syste m. CLINI [facility] INFOR MATIO N: Menst rual Statu s: LMP (if appli cable ): Clini lesley Histo ry/Pr eviou s Pap: Type of Neopl j luis (if appli cable ): Signi fican t Clini lesley Findi ngs: Other Histo ry: Hormo evelyn (if appli cable ): PAP EDUCA TANO L NOTE: The Pap Test is a scree [place] test with an inher ent false negat kenrick rate. Liqui d-bas ed sampl ing may decre ase, but will not elimi duncan, false negat kenrick resul ts. A negat kenrick resul t does not precl ude the prese nce and/o r devel opmen t of disea se, since the prese nce of abnor mal cells in the sampl e depen ds on the locat ion of the lesio n and sampl ing techn ique. Judy nued regul ar [place] is the best metho d of cance r preve ntion . If repor bennie cytol ogic findi ng do not corre late with physi lesley and/o r histo rical findi ngs, fur er inves tigat ion is recom robert d, as clini taylor warra nted. Not Available [facility] (Lab) [address], [place], [address], 09/12/2022 13:11:43 09/11/19 23 09/10/2022 TRICH OMONA S VAGIN ASHLEIGH (RRNA ) trichomonas vaginalis ribosomal RNA (rrna) Negati ve negati ve Not Available [facility] (Lab) [address], [place], [address], 09/12/2022 13:11:43 09/11/19 23 09/10/2022 CT/GC (REEMA) , THINP REP VIAL chlamydia trachomatis, PCR Negati ve negati ve Not Available [facility] (Lab) [address], [place], [address], 09/12/2022 13:11:44 09/11/19 23 09/10/2022 CT/GC (REEMA) , THINP REP VIAL neisseria gonorrhoeae, PCR Negati ve negati ve Not Available [facility] (Lab) [address], [place], [address], 09/12/2022 13:11:44 09/04/19 23 09/03/2022 US, pelvi s No observ ation record ed. [email or web address] [place] [address], [place], [address], 09/03/2022 18:25:54 09/04/19 23 09/03/2022 US, trans vagin al No observ ation record ed. [email or web address] [place] [address], [place], [address], 09/03/2022 18:25:45 09/04/19 23 09/03/2022 US, pelvi s No observ ation record ed. [email or web address] [address], [place], [address], 09/11/2022 11:54:28 Result Notes None recorded. Procedures Surgical History Date Name Laterality Status Provider Name and Address Organization Details Recorded Time 09/11/19 Date of Last Pap Smear completed Madison Leyla [facility] 09/15/2022 14:36:38 02/09/19 Endometrial Ablation completed Erin Gatica [facility] 08/26/2022 18:20:14 Tubal Ligation completed Erin Gatica I [facility] 08/26/2022 18:16:04 endometrial ablation completed Sallie Friend, [facility]- [address], [place], [address], [place] [facility] 08/26/2022 18:23:22 Imaging Results Imaging Date Name Status LastModified by Organization Details LastModified Time 09/03/2022 US, pelvis completed [email or web address] [place] [address], [place], [address], 09/03/2022 18:25:54 09/03/2022 US, trans[facility]aginal [email or web address] [address], [place], [address], 09/03/2022 18:25:45 09/03/2022 US, pelvis completed [email or web address] [address], [place], [address], 09/11/2022 11:54:28 Procedure Notes None recorded. Medical Equipment None Reported. Allergies No known drug allergies Medications Name Sig Start Date Stop Date Status Note LastModified by Organization Details LastModified Time cyclobenzap rine 10 mg tablet TAKE 1 TABLET BY MOUTH EVERY DAY NEEDED 02/20 completed Not Available Not Available Not Available ibuprofen 800 mg tablet TAKE 1 TABLET BY MOUTH THREE TIMES DAILY NEEDED FOR CRAMPS 02/20 completed Not Available Not Available Not Available hydrocodone 5 mg-acetamin ophen 325 mg tablet TAKE 1 TABLET BY MOUTH EVERY 6 HOURS NEEDED FOR PAIN 09/10 completed Not Available Not Available Not Available fluconazole 200 mg tablet TAKE 1 TABLET BY MOUTH EVERY OTHER DAY FOR 3 DOSES active Not Available Not Available No t Available prednisone 20 mg tablet TAKE 2 TABLETS BY MOUTH DAILY FOR 5 DAYS 09/10 completed Not Available Not Available Not Available metronidazo le 500 mg tablet TAKE 1 TABLET BY MOUTH TWICE DAILY WITH MEALS FOR 7 DAYS active Not Available Not Available No t Available terbinafine HCl 250 mg tablet TAKE 1 TABLET BY MOUTH EVERY DAY WITH MEALS FOR 45 DAYS 09/10 completed Not Available Not Available Not Available meclizine 25 mg tablet TAKE 1 TABLET BY MOUTH TWICE DAILY NEEDED FOR DIZZINESS active Not Available Not Available No t Available baclofen 10 mg tablet TAKE 1 TABLET BY MOUTH TWICE DAILY 09/10 completed Not Available Not Available Not Available lidocaine 5 % topical patch UNWRAP AND APPLY 1 PATCH TO SKIN. LEAVE ON MOST PAINFUL AREA FOR UP TO 12 HOURS 09/10 completed Not Available Not Available Not Available montelukast 10 mg tablet TAKE 1 TABLET BY MOUTH EVERY DAY DIRECTED active Not Available Not Available No t Available methylpredn isolone 4 mg tablets in a dose pack FOLLOW PACKAGE DIRECTION S 09/10 completed Not Available Not Available Not Available albuterol sulfate HFA 90 mcg/actuati on aerosol inhaler INHALE 2 PUFFS BY MOUTH THREE TIMES DAILY NEEDED 02/20 completed Not Available Not Available Not Available fluticasone propionate 50 mcg/actuati on nasal spray,suspe nsion SHAKE LIQUID AND USE 1 SPRAY IN EACH NOSTRIL TWICE DAILY 02/20 completed Not Available Not Available Not Available medroxyprog esterone 150 mg/mL intramuscul ar suspension Inject 1 ml (150 mg) intramusc ularly every 3 months 02/20 completed Not Available Not Available Not Available naproxen 500 mg tablet TAKE 1 TABLET BY MOUTH TWICE DAILY WITH MEALS 09/10 completed Not Available Not Available Not Available nitrofurant oin monohydrate /macrocryst als 100 mg capsule TAKE 1 CAPSULE BY MOUTH EVERY 12 HOURS FOR 5 DAYS. MUST ADMINISTE R WITH FOOD/A MEAL 09/10 completed Not Available Not Available Not Available Albuterol Sulfate HFA 90 mcg/Actuati on aerosol inhaler 09/10 completed Not Available Not Available Not Available calcium 600 mg (as carbonate)- vitamin D3 10 mcg (400 unit) tablet TAKE 1 TABLET BY MOUTH TWICE DAILY DIRECTED 02/20 completed Not Available Not Available Not Available Myfembree 40 mg-1 mg-0.5 mg tablet Take 1 tablet every day by oral route as directed for 30 days, for Uterine fibroids. 2023 active Not Available Not Available Not Yfnai lablogan Vitals Date Recorded Body height Body mass index (BMI) Body weight Systolic blood pressure Diastolic blood pressure Provider Name and Address Organization Details Last Updated DateTime 08/26/2022 170.18 cm 36.8 kg/m2 112394.2 1 g 113 mm[Hg] 77 mm[Hg] Erin [facility] 3 18:15:43 Date Recorded Body height Body mass index (BMI) Body weight Systolic blood pressure Diastolic blood pressure Provider Name and Address Organization Details Last Updated DateTime 09/10/2022 170.18 cm 36.3 kg/m2 470351.4 3 g 108 mm[Hg] 72 mm[Hg] Erin [facility] 3 12:42:33 Date Recorded Body height Body mass index (BMI) Body weight Systolic blood pressure Diastolic blood pressure Provider Name and Address Organization Details Last Updated DateTime 09/15/2022 170.18 cm 36.3 kg/m2 782400.4 3 g 111 mm[Hg] 69 mm[Hg] Madisonsena Mayer [facility] 3 14:36:06 Date Recorded Body height Body mass index (BMI) Body weight Systolic blood pressure Diastolic blood pressure Provider Name and Address Organization Details Last Updated DateTime 02/20/2023 170.18 cm 38.2 kg/m2 981355.5 4 g 116 mm[Hg] 73 mm[Hg] Anahi Winnie [facility] 4 13:23:49 Social History Question Answer Notes LastModified by Organizat ion Details LastModified Time Tobacco Smoking Status Never Smoker Jacquie Riojas [facility] 02/20/2023 13:18:24 What Is Your Level Of Alcohol Consumption? Occasional Information not available 08/26/2022 How Many Years Have You Consumed Alcohol? 19 Information not available 08/26/2022 Are You Blind Or Do You Have Difficulty Seeing? No Information not available 08/26/2022 What Is Your Level Of Caffeine Consumption? None Information not available 08/26/2022 How Much Tobacco Do You Chew? None Information not available 08/26/2022 In The 14 Days Before Symptom Onset, Have You Had Close Contact With A Laboratory-confir med COVID-19 While That Case Was Ill? No Information not available 08/26/2022 In The 14 Days Before Symptom Onset, Have You Had Close Contact With A Person Who Is Under Investigation For COVID-19 While That Person Was Ill? No Information not available 08/26/2022 Have You Been To An Area Known To Be High Risk For COVID-19? No Information not available 08/26/2022 Are You Deaf Or Do You Have Serious Difficulty Hearing? No Information not available 08/26/2022 What Type Of Diet Are You Following? REGULAR Information not available 08/26/2022 What Is The Highest Grade Or Level Of School You Have Completed Or The Highest Degree You Have Received? 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 No Information not available 08/26/2022 Do You Use Protection During Sex? No Information not available 08/26/2022 Do You Use Your Seat Belt Or Car Seat Routinely? Yes Information not available 08/26/2022 Do You Have Smoke And Carbon Monoxide Detectors In Your Home? Yes Information not available 08/26/2022 How Much Tobacco Do You Smoke? No Information not available 08/26/2022 Do You Feel Stressed (tense, Restless, Nervous, Or Anxious, Or Unable To Sleep At Night)? [id number] Information not available 08/26/2022 Do You Use Any Illicit Or Recreational Drugs? No Information not available 08/26/2022 Do You Use Sunscreen Routinely? No Information not available 08/26/2022 How Many Years Have You Smoked Tobacco? 0 Information not available 08/26/2022 Have You Used IV Drugs? No Information not available 08/26/2022 Sex: Unknown Functional Status Question Answer Note LastModified by Organizat ion Details LastModified Time Do you have difficulty walking or climbing stairs? No Information not available 02/20/2023 Are you able to walk? YESWOREST Information not available 08/26/2022 Are you able to care for yourself? Yes Information not available 02/20/2023 Do you have difficulty dressing or bathing? No Information not available 02/20/2023 What is your exercise level? None Information not available 08/26/2022 Mental Status None recorded. Family History Relationship Description Onset Age of this Age Resolved Age Notes LastModified by Organization Details LastModified Time Paternal Grandmother Asthma Not available 2022 18:15:47 Maternal Grandmother Diabetes mellitus Not available 2022 18:15:47 Son Asthma Not available 18:15:47 Medical History Condition Response Allergies (Food, seasonal, environmental ) Y Asthma Y Gynecological History Statement/Question Response Date of LMP 02/14/2023 On BCP's at Conception? 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 Y Ablation Menses Monthly Y Age of first menstrual cycle 16 Date of Last Pap Smear 09/10/2022 Sexual Problems? N Desired Control Method Hysterectom y LMP Approximate N Obstetrics History GPAL:G 4 P 2 0 2 2 Type Value Full Term 2 Induced 2 Living 2 Total 4 Past Encounters Encounter ID Performer Location Encounter Start Date Encounter Closed Date Diagnosis/Indication Diagnosis SNOMED-CT Code Diagnosis ICD10 Code Diagnosis Note [id number] [facility] [address] [address] 08/26/2022 18:01:16 08/26/2022 18:34:51 Abnormal uterine bleeding 4210968370 9100 N93.9 Today we agreed to update US to start and will consider updated labs at her f/u.WWE and results US to be scheduledL aileen TORREZ Consult due to failed Endometria l ablation if she does not want to stay on Depo injection & is interested in possible hysterecto my.WIll decide if needs to get her next Depo injection in September or if we will be making another plan.Will update STD screen with Pap smear/Mamm o order Time spent in visit is a total of 30 mins with at least 50% of visit consisting of counseling and review of plan of care. [id number] Kristen [facility] [address] [address] 09/03/2022 17:33:13 09/03/2022 18:22:40 Abnormal uterine bleeding [id number] 9100 N93.9 [id number] Sallie Friend [facility] [address] [address] 09/10/2022 12:35:13 09/10/2022 14:03:36 Gynecologic examination 54899259 Z01.419 Suggested Calcium with Vitamin D 1200-1500m g daily. Patient advised to get an annual flu shot in the fall and she could obtain at [facility] or [facility] care clinic. Also to obtain TDap vaccinatio n if you have not had one in the last 10 years. Recommend yearly mammograms . Encouraged monthly self breast exams. Encourage safe sexual practices, to use condoms and limit partners if not already in a monogamous relationsh ip. Engage in daily exercise of low impact aerobic exercise 45-60 minutes 4-5 times weekly. Avoid tobacco and illicit drugs as well as using moderation with alcohol intake less than 1-2 8 oz beverages daily. This lifestyle behavior pattern will lead to less health conditions and longer life span. If BMI greater than 25 weight watchers or dietary consult advised. All questions have been answered. Patient appears to understand informatio n, but if you have any questions please call or respond to this email. Pap/hpv sent STD Screen sent Genetic Screen discussed Colon Screen pcp Dexa Screen na Routine Labs pcp Screening mammography 24 547105 Z12.31 Uterine leiomyoma 770380 05 N93.9 Reviewed USMultiple small fibroidsPo ssibly could contribute to the random spotting she will have some monthsFail ed ablation in the pastOn depo but prefers not to continue this method if possible.I nterested in discussing possible hysterecto myWill proceed with next depo injection until MD consult & alternate plan of care has been est'd. [id number] Hakeem Ortega MD [place] [address] [address] 09/15/2022 14:29:50 09/15/2022 15:21:03 Pain in pelvis 18666760 R10.2 Abnormal u terine bleeding 2469386100 9100 N93.9 this patient is 42-year-ol d female with abnormal uterine bleeding and pelvic pain. She has crampy lower abdominal/ pelvic pain. She associates that with her bleeding mostly. There are times when she is not not bleeding and has the cramping also. She had an ultrasound . She had multiple small uterine fibroids. The uterus was slightly enlarged but is very irregular with fibroids in all areas of uterus. She has regular menstrual cycle is very heavy prior to starting Depo-Prove ra. She started the for about 4 months ago. She had bleeding throughout that time. We discussed her bleeding and her pain. We agreed to continue to observe her bleeding and pain and allow the Depo to possibly be effective. She will follow-up in a couple of months we will discuss results. We spent 20 minutes face-to-fa ce. More than 50% was counseling . . Patient was initially abdiaziz bolton hysterecto my. She is now willing to observe the Depo-Prove ra for few more months. [id number] [facility] [address] [address] 02/20/2023 13:17:05 02/24/2023 14:40:12 Uterine leiomyoma 66523753 N93.9 Today we discussed use of Myfembree to help with AUB from failed ablation and uterine fibroids until she is able to have her consult and scheduled for her hysterecto my if that is the recommenda tion made by and they both feel it is a good choice for her.If this process takes more than 1mos; and she continues to do well on this medication we can continue it until that time. Needs to stop the medication approx 4-6wks prior to surgical procedures per manufactur er. Opts for a female provider at this time.F/U in about 2wks for medication check of MyfembreeU nderstands that it will still take time for this to take effect.Kofi juliette given x 1mos Counseled on medication R/B's, Most common side effects, & use. All questions were answered to patient satisfacti on. Time spent in visit is a total of 30 mins with at least 50% of visit consisting of counseling and review of plan of care. Vaginitis 51907333 N76.0 Suspect BV/Yeast with chronic use of ha-pads for the irregular bleeding she has from fibroids/f cecilia ablation/f cecilia depo (last injection 09/2022). Declined need std screen Rx sent Counseled on medication R/B's, Most common side effects, & use. All questions were answered to patient satisfacti on. Health Concerns Section Related Observation LastModified by Organization Detai ls LastModified Time None Recorded Concern Status LastModified by Organization Details LastModified Time None Recorded Advance Directives Directive None Recorded Payers Encounter Date Sequence Insurance Name Policy Number Policy Meehan Covered Member ID Meehan Member ID Guarantor Name 08/26/2022 1 [facility] ON OR AFTER 08/09/20 (MEDICAID REPLACEMENT - HMO) Cain Chsae [id number] Cain Chase 09/03/2022 1 [facility] - DOS ON OR AFTER 20 (MEDICAID REPLACEMENT - HMO) Cain Chase [id number] Cain Chase 09/10/2022 1 [facility] - DOS ON OR AFTER 20 (MEDICAID REPLACEMENT - HMO) Cain Chase [id number] Cain Chase 09/15/2022 1 [facility] - DOS ON OR AFTER 20 (MEDICAID REPLACEMENT - HMO) Cain Chase [id number] Cain Chase 02/20/2023 1 [employer] [id number] Cain Chase [id number] Cain Chase Notes Date Note Type Note Provider Name and Address Organization Details Recorded Time 3 text/html Here today to discuss menorrhagia post-endometrial ablation in 2018.Menses is still monthly, lasting 6 days with the first day & last brownish spotting.Days 2-5 are heavy, no clots but increase in dysmenorrhea.Went to Dr. Lazcano PCP in June and they initiated Depo injection.Has had quite a bit of brownish spotting.Doesn't know if wants to stay on this method.Possibly interested in Hysterectomy.Due for next injection 09/21/2022. Neg pain of abd/pelvis/flankNeg urinary sx'sNeg GI sx'sNeg N/V/F/C/DNeg Vag d/c, odor, irritation, itchingMonogamous Health Hx was reviewed and updated as reported in chart. [facility] [address], [place], [address], [facility] 08/26/2022 18:33:23 3 text/html Annual GYNReported bypatient.Menstrual cycle:Unexplained vaginal bleeding Urinary symptoms:No hematuria; No incontinence Vulva:No genital lesion Vagina:Normal vaginal discharge Breast:No breast pain; No breast lump; No nipple discharge Current Contraception:Intramus cular contraceptive injection Sexual complaints:No sexual complaints; No pain during intercourse; Normal libido Menopausal Symptoms:No menopausal symptoms; Normal vaginal lubrication Psychological symptoms:No depression; No anxiety; No PMDD Preventive measures:Encourage self breast examination; Encourage regular exercise; Encourage no tobacco use; Encourage regular mammograms starting age 40; Followed with yearly pap smears; Needs to schedule mammogram Sallie Friend [facility] [address], [place], [address], [facility] 09/10/2022 13:45:49 3 text/html this patient is 42-year-old female with abnormal uterine bleeding and pelvic pain. She has crampy lower abdominal/ pelvic pain. She associates that with her bleeding mostly. There are times when she is not not bleeding and has the cramping also. She had an ultrasound. She had multiple small uterine fibroids. The uterus was slightly enlarged but is very irregular with fibroids in all areas of uterus. She has regular menstrual cycle is very heavy prior to starting Depo-Provera. She started the for about 4 months ago. She had bleeding throughout that time. We discussed her bleeding and her pain. We agreed to continue to observe her bleeding and pain and allow the Depo to possibly be effective. She will follow-up in a couple of months we will discuss results. We spent 20 minutes [id number]. More than 50% was counseling. Hakeem Ortega MD [address], [place], [address], [facility] 09/15/2022 15:01:47 4 text/html Here today to revisit possible hysterectomy for fibroids that continue to cause AUB. Was previously on Depo to help AUB but it is not doing its job ; and patient wants to know other options. There have been no changes to her health hx since her last visit. She is also having some itching/irritation/odo r vaginally.No sexual partners-declined need std screen Neg pain of abd/pelvis/flankNeg urinary sx'sNeg GI sx'sNeg N/V/F/C/D Sallie Friend MIGEL- [address], [place], [address], [facility] 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 Status 08/27/19 23 1 CLOSED Fetus Data First Name Last Name Admitted to NICU Weight (g) Sex Living Outcome Pediatric Complications Fetus ID Race Codes Race Delivery Type , Induced Senthil Calculation Initial Senthil Date Initial Exam Date Initial Exam Provider Initial Ultrasound Date Last Menstrual Period Date Ultra Sound Weeks Gestation 0 Eighteen To Twenty Week Senthil Update Ultra Sound Date Fundal Height At Umbil Quickening Date Ultra Sound Latest Weeks Gestation Final Senthil Confirmed By Final Senthil Confirmed Date Final Senthil Date Ultra Sound Latest Days Gestation 0 0 Menstrual History Last Menstrual Date Menses Monthly On Bcp Conception Prior Menses Frequency Hcg Plus Date Menarche Onset Age Delivery Information Delivery Date Delivery Type Labor Anesthesia Weeks Gestation Incision Type Labor Labor Length Hrs Delivered By Post Complications Tubal Sterilization Discharge Date Comments 6 Discharge Information Feeding Method Contraceptive Method Maternal HG B and HCT Levels Ob Episode Information Episode Created Date Number of Fetuses Patient Bloodtype Patient rh Status Prepregnancy Weight lbs Domestic Partner Domestic Partner Phone Father Name Laundry Equipment Operator Status 08/27/19 23 1 CLOSED Fetus Data First Name Last Name Admitted to NICU Weight (g) Sex Living Outcome Pediatric Complications Fetus ID Race Codes Race Delivery Type , Induced Senthil Calculation Initial Senthil Date Initial Exam Date Initial Exam Provider Initial Ultrasound Date Last Menstrual Period Date Ultra Sound Weeks Gestation 0 Eighteen To Twenty Week Senthil Update Ultra Sound Date Fundal Height At Umbil Quickening Date Ultra Sound Latest Weeks Gestation Final Senthil Confirmed By Final Senthil Confirmed Date Final Senthil Date Ultra Sound Latest Days Gestation 0 0 Menstrual History Last Menstrual Date Menses Monthly On Bcp Conception Prior Menses Frequency Hcg Plus Date Menarche Onset Age Delivery Information Delivery Date Delivery Type Labor Anesthesia Weeks Gestation Incision Type Labor Labor Length Hrs Delivered By Post Complications Tubal Sterilization Discharge Date Comments 3 Discharge Information Feeding Method Contraceptive Method Maternal HG B and HCT Levels Ob Episode Information Episode Created Date Number of Fetuses Patient Bloodtype Patient rh Status Prepregnancy Weight lbs Domestic Partner Domestic Partner Phone Father Name Laundry Equipment Operator Status 08/27/19 23 1 CLOSED Fetus Data First Name Last Name Admitted to NICU Weight (g) Sex Living Outcome Pediatric Complications Fetus ID Race Codes Race Delivery Type 3628.73 6 Full Term Vaginal Delivery Senthil Calculation Initial Senthil Date Initial Exam Date Initial Exam Provider Initial Ultrasound Date Last Menstrual Period Date Ultra Sound Weeks Gestation 0 Eighteen To Twenty Week Senthil Update Ultra Sound Date Fundal Height At Umbil Quickening Date Ultra Sound Latest Weeks Gestation Final Senthil Confirmed By Final Senthil Confirmed Date Final Senthil Date Ultra Sound Latest Days Gestation 0 0 Menstrual History Last Menstrual Date Menses Monthly On Bcp Conception Prior Menses Frequency Hcg Plus Date Menarche Onset Age Delivery Information Delivery Date Delivery Type Labor Anesthesia Weeks Gestation Incision Type Labor Labor Length Hrs Delivered By Post Complications Tubal Sterilization Discharge Date Comments 0 Discharge Information Feeding Method Contraceptive Method Maternal HG B and HCT Levels Ob Episode Information Episode Created Date Number of Fetuses Patient Bloodtype Patient rh Status Prepregnancy Weight lbs Domestic Partner Domestic Partner Phone Father Name Laundry Equipment Operator Status 08/27/19 23 1 CLOSED Fetus Data First Name Last Name Admitted to NICU Weight (g) Sex Living Outcome Pediatric Complications Fetus ID Race Codes Race Delivery Type 3288.54 2 Full Term Vaginal Delivery Senthil Calculation Initial Senthil Date Initial Exam Date Initial Exam Provider Initial Ultrasound Date Last Menstrual Period Date Ultra Sound Weeks Gestation 0 Eighteen To Twenty Week Senthil Update Ultra Sound Date Fundal Height At Umbil Quickening Date Ultra Sound Latest Weeks Gestation Final Senthil Confirmed By Final Senthil Confirmed Date Final Senthil Date Ultra Sound Latest Days Gestation 0 0 Menstrual History Last Menstrual Date Menses Monthly On Bcp Conception Prior Menses Frequency Hcg Plus Date Menarche Onset Age Delivery Information Delivery Date Delivery Type Labor Anesthesia Weeks Gestation Incision Type Labor Labor Length Hrs Delivered By Post Complications Tubal Sterilization Discharge Date Comments 8 Discharge Information Feeding Method Contraceptive Method Maternal HG B and HCT Levels
--- OUTSIDE RECORDS SUMMARY | 2024-05-21 10:01 | XMS_ITS | Clinical Summary ---
Author Organization [facility] Address [address] [place] [address] Care Team Providers Care Gospel Worker Name Role Phone No, Physician Primary Care Provider [phone] Allergies No known active allergies Medications dexAMETHasone (DECADRON) 4 mg tablet Take 1 tablet (4 mg total) by mouth daily with breakfast 5 tablet 4 Active traMADoL (ULTRAM) 50 mg tablet Take 1 tablet (50 mg total) by mouth every 6 (six) hours 12 tablet 4 Active Active Problems Problem Noted Date Diagnosed Date Pelvic pain 04/28/2022 Immunizations Immunization Administration Dates Next Due Influenza, Trivalent, Preservative Free, Intramu scular 02/08/2014 Tdap 08/17/2019 Surgical History Surgery Date Site/Laterality Comments HYSTERECTOMY Social History Tobacco Use Types Packs/Day Years Used Date Smoking Tobacco: Never Assessed Personal Safety Answer Date Recorded Have you ever been in or are you currently in a harmful physical or emotional relationship or is someone making you feel afraid or unsafe? Denies 11/26/2023 Comments Unknown Sex and Gender Information Value Date Recorded Sex Assigned at Not on file Legal Sex Female 1:11 PM CDT Gender Identity Not on file Sexual Orientation Not on file Obstetrics History Para Term AB IAB SAB Ectopic Multiple Livin g Live Births 4 2 2 2 2 2 Date Outcome GA Total Labor Labor/2nd/3rd Weight Sex Type Anes PTL Ellie A1 A5 Name Clin Term Term AB AB Comments Term x2 Last Filed Vital Signs Vital Sign Reading Time Taken Comments Blood Pressure 132/76 11/26/2023 9:20 AM CDT Pulse 77 11/26/2023 9:20 AM CDT Temperature 36.7 C (98.1 F) 11/26/2023 7:09 AM CDT Respiratory Rate 18 11/26/2023 9:20 AM CDT Oxygen Saturation 99% 11/26/2023 9:20 AM CDT Inhaled Oxygen Concentration - - Weight 107.6 kg (237 lb 3.4 oz) 11/26/2023 7:09 AM CDT Height 172.7 cm (5' 8 ) 06/12/2023 1:36 PM CDT Body Mass Index 36.07 06/12/2023 1:36 PM CDT Plan of Treatment Health Maintenance Due Date Last Done Comments Breast Cancer Screening-Mammogram 1982 Depression Screening 1982 Hepatitis C Screening 1982 Varicella Vaccines (1 of 2 - 13+ 2-dose series) 07/16/1995 Hepatitis B Screening 2000 Regular Well Visit/Exam 18-64 2000 Covid-19 Vaccine (3 - 2023-2 5 season) 2023 06/07/2020, 05/10/2020 Influenza Vaccine (#1) 2023 02/08/2014 DTaP/Tdap/Td Vaccine (2 - Td or Tdap) 08/16/2029 08/17/2019 HPV Vaccines Aged Out No longer eligi ble based on patient's age to complete this topic Pneumococcal vaccine <65 Aged Out No longer eligible based on patient's age to complete this topic Insurance [facility] Care Teams Gospel Worker Relationship Specialty Start Date End Date No, Physician PCP - General 04/28/22
--- OUTSIDE RECORDS SUMMARY | 2024-05-21 10:01 | XMS_ITS | Clinical Summary ---
Author Organization [facility] Care Team Providers Care Eeler Name Role Phone Unavailable Primary Care Provider Unavailabl e Social History Tobacco Use Types Packs/Day Years Used Date Smoking Tobacco: Never Assessed Comments Unknown Sex and Gender Information Value Date Recorded Sex Assigned at Not on file Legal Sex Female 12:42 PM CDT Gender Identity Not on file Sexual Orientation Not on file Plan of Treatment Health Maintenance Due Date Last Done Comments Hepatitis C Virus (HCV) Screening 1982 TdaP Immunization 1982 Hepatitis B Immunization (1 of 3 - 19+ 3-dose series) 2001 Pap Smear 07/16/2003 Cervical Cancer Screening (CCS) 2012 HPV/Cotest 2012 Discussion re Starting/Frequency of Mammograms 2022 Influenza Immunization (#1) 2023 02/08/2014 SARS-COV-2 Immunization ( season) 2023 06/07/2020, 05/10/2020 Respiratory Syncytial Virus (RSV) Immunization (Adult) (1 - 1-dose 75+ series) 2057 Meningococcal Immunization (ACWY) Aged Out No longer eligible b ased on patient's age to complete this topic Pneumococcal Immunization Combined Aged Out No longer eligible b ased on patient's age to complete this topic Rotavirus Immunization Aged Out No lo nger eligible based on patient's age to complete this topic
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
--- OUTSIDE RECORDS SUMMARY | 2024-05-21 10:01 | XMS_ITS | CONTINUITY OF CARE DOCUMENT ---
Author Name mandy galvan Address Unknown Organization [facility] Address [address] [place] [address] [address] [place] [address] Phone [phone] Care Team Providers Care Emulsion Coater Name Role Phone Garth Rodriguez MD Unavailable [phone] INSURANCE PROVIDERS Payer name Policy type / Coverage type John red democrat [place] MEDICAID (2) Medicaid [id number]
--- OUTSIDE RECORDS SUMMARY | 2024-05-21 10:01 | XMS_ITS | Clinical Summary ---
Author Organization [facility] Address [address] [place] [address] Care Team Providers Care Window Sash Installer Name Role Phone None, Provider MD Primary Care Provider Unavaila ble Allergies No known active allergies Medications baclofen 10 MG tablet TK 1 T PO TID PRN 1 8 Active ibuprofen 800 MG tablet TK 1 T PO TID PRF CRAMPS 0 8 Active lactulose 10 GM/15ML solution TK 15 ML PO QD 5 8 Active sertraline 100 MG tablet TK 1 T PO QD IN THE MORNING 6 8 Active terbinafine 250 MG tablet TK 1 T PO QD 2 8 Active DiazePAM 10 MG tablet Take 1 tablet (10 mg total) by mouth every 6 (six) hours as needed for Anxiety. Take one tab 1 hour prior to procedure 1 tablet 8 Active Active Problems Problem Noted Date Diagnosed Date Lumbar radiculopathy 06/11/2017 Family History Medical History Relation Comments Diabetes Maternal Aunt 1 Diabetes Maternal Aunt 2 Diabetes Maternal Grandmother Relation Status Comments Maternal Aunt 1 Maternal Aunt 2 Maternal Grandmother Social History Tobacco Use Types Packs/Day Years Used Date Smoking Tobacco: Never Smokeless Tobacco: Never Alcohol Use Standard Drinks/Week Comments No 0 (1 standard drink = 0.6 oz pur e alcohol) Comments No Sex and Gender Information Value Date Recorded Sex Assigned at Not on file Legal Sex Female 5:59 PM CDT Gender Identity Not on file Sexual Orientation Not on file Last Filed Vital Signs Vital Sign Reading Time Taken Comments Blood Pressure 118/71 02/24/2022 12:16 PM BULLET ASSEMBLY PRESS OPERATOR Pulse 72 02/24/2022 12:16 PM BULLET ASSEMBLY PRESS OPERATOR Temperature 36.8 C (98.3 F) 02/24/2022 12:16 PM BULLET ASSEMBLY PRESS OPERATOR Respiratory Rate 20 02/24/2022 12:16 PM BULLET ASSEMBLY PRESS OPERATOR Oxygen Saturation 100% 02/24/2022 12:16 PM BULLET ASSEMBLY PRESS OPERATOR Inhaled Oxygen Concentration - - Weight 94.3 kg (208 lb) 07/27/2017 10:39 AM CDT Height 170.2 cm (5' 7 ) 07/27/2017 10:39 AM CDT Body Mass Index 32.58 07/27/2017 10:39 AM CDT Plan of Treatment Health Maintenance Due Date Last Done Comments Cervical Cancer Screening Pa p Smear (Age 30 to 64) Every 3 Years 1982 Annual Physical 1985 Hepatitis C 2000 Hepatitis B Vaccines (1 of 3 - 19+ 3-dose series) 2001 Cervical Cancer Screening Pa p with HPV Testing (Age 30 to 64) Every 5 Years 2012 Cervical Cancer Screening wi th HPV 2012 Mammogram Screening 2022 COVID-19 Vaccine (3 - 2023-2 5 season) 2023 06/07/2020, 05/10/2020 DTaP, Tdap and Td Vaccines ( 2 - Td or Tdap) 08/16/2029 08/17/2019 HPV Vaccines Aged Out No longer eligi ble based on patient's age to complete this topic Meningococcal B Vaccine Aged Out No l onger eligible based on patient's age to complete this topic Meningococcal Vaccine Aged Out No dejan leni eligible based on patient's age to complete this topic Pneumococcal Vaccine: Pediatrics (0 to 5 Years) and At-Risk Patients (6 to 64 Years) Aged Out No longer eligible b ased on patient's age to complete this topic RSV Immunizations Under 20 Months Aged Out No longer eligible b ased on patient's age to complete this topic Insurance Care Teams Window Sash Installer Relationship Specialty Start Date End Date None, Provider, PCP - General UNKNOWN PHYSICIAN SPECIALTY 02/24/22
--- OUTSIDE RECORDS SUMMARY | 2024-05-21 10:01 | XMS_ITS | Referral Summary ---
Author Organization [facility] Address [address] [place] [address] Care Team Providers Care Senior Product Marketing Manager Name Role Phone No, Physician Primary Care Provider [phone] Allergies No known active allergies Medications dexAMETHasone [...] Preservative Free, Intramu scular 02/08/2014 Tdap 08/17/2019 Social History Tobacco Use Types Packs/Day [...] 06/12/2023 1:36 PM CDT Plan of Treatment Not on file Insurance [facility] Care Teams Senior Product Marketing Manager Relationship Specialty Start Date End Date No, Physician PCP - General 04/28/22
== END 2024-05-21 09:58 | disposition home or self-care (01) ==
PROVIDERS: Visit Provider Physician Assistant Medical
DX: M51.369 Other intervertebral disc degeneration, lumbar region without mention of lumbar back pain or lower extremity pain (principal)
CPT/HCPCS: 72148

== ENCOUNTER 2024-07-01 15:15 | Emergency (ER) | payer BC, SELFPAY ==
[2024-07-01 15:26] VITALS: BP 112/68; PULSE 63; RESP 16; TEMP 36.4; O2SAT 97
--- NOTE | 2024-07-01 15:52 | PC.NURSE ---
4095- Patient received a phone call and had to leave urgently. Patient was not seen by provider but did have her Vital signs taken but was NOT evaluated by RN or Provider.
== END 2024-07-01 15:52 | disposition left against medical advice (07) ==
PROVIDERS: PCP Physician Assistant Medical
DX: Z53.21 Procedure and treatment not carried out due to patient leaving prior to being seen by health care provider (principal)
CPT/HCPCS: 99199

== ENCOUNTER 2024-07-27 07:56 | Emergency (ER) | payer OTHER, MEDICAID, SELFPAY ==
--- OUTSIDE RECORDS SUMMARY | 2024-07-27 07:59 | XMS_ITS | Clinical Summary ---
Author Organization [facility] Care Team Providers Care Sports Specialist Name Role Phone Unavailable Primary Care Provider [...]
--- OUTSIDE RECORDS SUMMARY | 2024-07-27 07:59 | XMS_ITS | Data Portability ---
Author Organization [facility] [place] Address [address] [place] [address] [address] Assessment Encounter Date Assessment Date Assessment LastModified [...] recorded. Imaging MAMMO, screening, bilateral 2022 023 [facility], [address], [address] [address], [place], [address], 14:03:36 US, pelvis 2022 023 [email or web address] [place], [address], [address], [place], [address], 21:26:31 US, transvagina l 2022 023 [email or web address] [place], [address], [address], [place], [address], 3 21:26:31 US, pelvis, complete 2022 023 [place], [address], [place], [address], 3 15:41:26 Medication Orders Diflucan 200 mg tablet 2023 024 [facility] #[id number], [address], [place], [place], [id number], 4 13:54:35 metronidazo le 500 mg tablet 2023 024 [facility] #[id number], [address], [place], [place], [id number], 4 13:54:36 Myfembree 40 mg-1 mg-0.5 mg tablet 2023 024 [email or web address] [facility] #[id number], [address] [facility], [place], [place], [id number], 4 11:39:22 Patient TargetsNo targets recorded. 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 Not Available [facility] (Lab) [address] [facility], [place], [address], 09/12/2022 13:11:43 09/11/19 23 09/10/2022 TRICH OMONA S VAGIN ASHLEIGH (RRNA ) trichomonas vaginalis ribosomal RNA (rrna) Negati ve negati ve Not Available [facility] (Lab) [address], [place], [address], 09/12/2022 13:11:43 09/11/19 23 09/10/2022 CT/GC (REEMA) , THINP REP VIAL chlamydia trachomatis, PCR Negati ve negati ve Not Available [facility] (Lab) [address], [place], [address], 09/12/2022 13:11:44 09/11/19 23 09/10/2022 CT/GC (REEMA) , THINP REP VIAL neisseria gonorrhoeae, PCR Negati ve negati ve Not Available [facility] (Lab) [address], [place], [address], 09/12/2022 13:11:44 09/04/19 23 09/03/2022 US, pelvi s No observ ation record ed. [email or web address] [place] [address], [place], [address], 09/03/2022 18:25:54 09/04/19 23 09/03/2022 US, trans vagin al No observ ation record ed. [email or web address] [place] [address], [place], [address], 09/03/2022 18:25:45 09/04/19 23 09/03/2022 US, pelvi s No observ ation record ed. [email or web address] [address], [place], [address], 09/11/2022 11:54:28 Result Notes None recorded. Procedures Surgical History Date Name Laterality Status Provider Name and Address Organization Details Recorded Time 09/11/19 Date of Last Pap Smear completed Madison Mayer [facility] 09/15/2022 14:36:38 02/09/19 Endometrial Ablation completed Erin Gatica [facility] 08/26/2022 18:20:14 Tubal Ligation completed Erin Gatica I [facility] 08/26/2022 18:16:04 endometrial ablation completed Sallie Friend, [facility]- [address], [place], [address], [facility] 08/26/2022 18:23:22 Imaging Results None recorded. Procedure Notes None recorded. Medical Equipment None [...] 2023 active Not Available Not Available Not Avai lable Vitals Date Recorded Body height Body mass index (BMI) Body weight Systolic blood pressure Diastolic blood pressure Provider Name and Address Organization Details Last Updated DateTime 02/20/2023 170.18 cm 38.2 kg/m2 124357.5 4 g 116 mm[Hg] 73 mm[Hg] Anahi Zhou [facility] 13:23:49 Date Recorded Body height Body mass index (BMI) Body weight Systolic blood pressure Diastolic blood pressure Provider Name and Address Organization Details Last Updated DateTime 08/26/2022 170.18 cm 36.8 kg/m2 364691.2 1 g 113 mm[Hg] 77 mm[Hg] Erin [facility] 3 18:15:43 Date Recorded Body height Body mass index (BMI) Body weight Systolic blood pressure Diastolic blood pressure Provider Name and Address Organization Details Last Updated DateTime 09/10/2022 170.18 cm 36.3 kg/m2 502066.4 3 g 108 mm[Hg] 72 mm[Hg] Erin [facility] 3 12:42:33 Date Recorded Body height Body mass index (BMI) Body weight Systolic blood pressure Diastolic blood pressure Provider Name and Address Organization Details Last Updated DateTime 09/15/2022 170.18 cm 36.3 kg/m2 369974.4 3 g 111 mm[Hg] 69 mm[Hg] Madison Mayer [facility] 3 14:36:06 Social History Question Answer Notes LastModified by Organizat ion Details LastModified Time Tobacco Smoking Status Never [facility]oker [facility]23 13:18:24 How Many Years Have You Consumed Alcohol? 19 Information not available 08/26/2022 Are You Blind Or Do You Have Difficulty Seeing? No Information n ot available 08/26/2022 What Is Your Level Of Caffeine Consumption? None Information not available 08/26/2022 How Much Tobacco Do You Chew? None Information not available 08/26/2022 In The 14 Days Before Symptom Onset, Have You Had Close Contact With A Laboratory-confirm ed COVID-19 While That Case Was Ill? No Information n ot available 08/26/2022 In The 14 Days Before [...] Of Diet Are You Following? REGULAR Information n ot available 08/26/2022 What Is The Highest Grade Or Level Of School You Have Completed Or The Highest Degree You Have Received? [id number] Information not available 08/26/2022 Are There Any [...] IV Drugs? No Information not available 08/26/2022 Do You Have Difficulty Walking Or Climbing Stairs? No Information not available 02/20/2023 Sex: Unknown Functional Status Question Answer Note LastModified by Organizat ion Details LastModified Time Do you use any illicit or recreational drugs? No Information not available 08/26/2022 What is your level of alcohol consumption? Occasional Information not available 08/26/2022 Are you able to walk? YESWOREST Information not available 08/26/2022 Are you able to care for yourself? 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 No Information not available 02/20/2023 What is your exercise level? None Information not available 08/26/2022 Mental Status Question Answer Note LastModified by Organization D etails LastModified Time Do you feel stressed (tense, restless, nervous, or anxious, or unable to sleep at night)? [id number] Information not available 08/26/2022 Family History Relationship Description Onset Age of [...] of Flow (days) 6 Current Control Method Depo-Ripsawyer a Age at First Child 19 Date [...] SNOMED-CT Code Diagnosis ICD10 Code Diagnosis Note [id number] Sallie Friend [facility] [address] [address] 08/26/2022 18:01:16 08/26/2022 18:34:51 Abnormal uterine bleeding 3169144106 9100 N93.9 Today we agreed to update [...] counseling and review of plan of care. [id number] Hakeem Ortega MD [place] [address] [address] 09/03/2022 17:33:13 09/03/2022 18:22:40 Abnormal uterine bleeding [id number] 9100 N93.9 [id number] Sallie Friend [facility] [address] [address] 09/10/2022 12:35:13 09/10/2022 14:03:36 Gynecologic examination 25054476 Z01.419 Suggested Calcium with Vitamin D 1200-1500m g daily. Patient advised to get an annual flu shot in the fall and she could obtain at [facility] or [facility] clinic. Also to obtain TDap vaccinatio n [...] na Routine Labs pcp Screening mammography 24 972693 Z12.31 Uterine leiomyoma 222093 05 N93.9 Reviewed USMultiple small fibroidsPo ssibly could contribute to the random spotting she will have some monthsFail ed ablation in the pastOn depo but prefers not to continue this method if possible.I nterested in discussing possible hysterecto myWill proceed with next depo injection until MD consult & alternate plan of care has been est'd. [id number] Hakeem Ortega MD [place] [address] [address] 09/15/2022 14:29:50 09/15/2022 15:21:03 Pain in pelvis 60836025 R10.2 Abnormal u terine bleeding 4762496290 9100 N93.9 this patient is 42-year-ol d [...] was counseling . . Patient was initially considerin hoang hysterecto my. She is now willing to observe the Depo-Prove ra for few more months. [id number] Sallie Friend , [facility] [address] [address] 02/20/2023 13:17:05 02/24/2023 14:40:12 Uterine leiomyoma 31125535 N93.9 Today we discussed use of Myfembree [...] take time for this to take effect.Kofi segovia given x 1mos Counseled on medication R/B's, Most common side effects, & use. All questions were answered to patient satisfacti on. Time spent in visit is a total of 30 mins with at least 50% of visit consisting of counseling and review of plan of care. Vaginitis 70932717 N76.0 Suspect BV/Yeast with chronic use of [...] Recorded Advance Directives Directive None Recorded Payers Insurance Date Sequence Insurance Name Policy Number Policy Meehan Covered Member ID Meehan Member ID Guarantor Name 03/17/2023 1 [facility] [facility] [id number] Cain Chase [id number] Cain Chase 02/20/2023 1 [facility] - DOS ON OR AFTER 20 (MEDICAID REPLACEMENT - HMO) Cain Chase [id number] Cain Chase Notes Date Note Type Note [...] reviewed and updated as reported in chart. Sallie Friend, [facility]- [address], [place], [address], [facility] 08/26/2022 18:33:23 3 text/html Annual [...] mammogram Sallie Friend [facility]- [address], [place], [address], [facility] 09/10/2022 13:45:49 3 text/html this [...] will discuss results. We spent 20 minutes [id number]. More than 50% was counseling. Hakeem Ortega MD [address], [place], [address], [facility] 09/15/2022 15:01:47 4 text/html Here today to revisit possible hysterectomy for fibroids that continue to cause AUB. Was previously on Depo to help AUB but it is not doing its job; and patient wants to know other options. There have been no changes to her health hx since her last visit. She is also having some itching/irritation/odo r vaginally.No sexual partners-declined need std screen Neg pain of abd/pelvis/flankNeg urinary sx'sNeg GI sx'sNeg N/V/F/C/D Sallie Friend [facility] [address], [place], [address], [facility] 02/24/2023 11:42:49 OBGyn Episode Ob Episode Information Episode Created Date Number of Fetuses Patient Bloodtype Patient rh Status Prepregnancy Weight lbs Domestic Partner Domestic Partner Phone Father Name News Camera Operator Status 08/27/19 23 1 CLOSED Fetus [...] Domestic Partner Domestic Partner Phone Father Name News Camera Operator Status 08/27/19 23 1 CLOSED Fetus [...] Domestic Partner Domestic Partner Phone Father Name News Camera Operator Status 08/27/19 23 1 CLOSED Fetus [...] Domestic Partner Domestic Partner Phone Father Name News Camera Operator Status 08/27/19 1 CLOSED Fetus Data First Name Last [...]
--- OUTSIDE RECORDS SUMMARY | 2024-07-27 07:59 | XMS_ITS | Referral Summary ---
Author Organization [facility] Address [address] [place] [address] Care Team Providers Care Assistance Representative Name Role Phone No, Physician Primary Care Provider [phone] Devendra Saxena Unavailable [phone] Encounters Date Type Department Care Team Description 07/05/2024 11:[address] [facility] [address] [place] [address] Pre-employment health screening examination 07/05/2024 Orders Only [facility] [address] [place] [address] [address] (Third Floor) [place] [address] Kalpesh Damon MD Pre-employment health screening examination (Primary Dx) from Last 3 Months Allergies No known active allergies Medications dexAMETHasone [...] 7:09 AM CDT Height 172.7 cm (5' 8) 06/12/2023 1:36 PM CDT Body Mass Index 36.07 06/12/2023 1:36 PM CDT Plan of Treatment Not on file Procedures Procedure Name Priority Date/Time Associated Diagnosis Comments T-SPOT.TB Routine 07/05/2024 10:55 AM CDT Pre-employment health screening examination from Last 3 Months Results * T-SPOT.TB Blood (07/05/2024 10:55 AM CDT) [facility] T-SPOT.TB Negative SeeBelow Comment: Normal Value: Negative A negative test result does not exclude the possibility of exposure to or infection with Mycobacterium tuberculosis (M. tuberculosis). Patients with recent exposure to TB infected individuals exhibiting a negative T-SPOT.TB result should be considered for retesting within 6 weeks or if other relevant clinical symptoms indicate. Results from T-SPOT.TB testing must be used in conjunction with each individual's epidemiological history, current medical status, and results of other diagnostic evaluations. The T-SPOT.TB test is qualitative and results are reported as positive, borderline or negative, given that the test controls perform as expected. In line with the Centers for Disease Control and Prevention's 2010 recommendation to report quantitative measurements alongside the qualitative result, the laboratory provides spot counts for informational purposes only. The T-SPOT.TB test should not be interpreted as a quantitative test. T-SPOT.TB Panel A Spot Count 1 [facility] T-SPOT.TB Panel B Spot Count 1 [facility] T-SPOT.TB Negative Control Passed [facility] T-SPOT.TB Positive Control Passed TAMMY MARQUES Comment: Test Performed at: [facility] [address] [place] [address] TONY JIMENEZ,PHD Blood 07/05/2024 10:5 5 AM CDT 07/05/2024 11:30 AM CDT Narrative TAMMY - 07/07/2024 3:28 PM CDT Bill to [facility] [employer] Patient is employed by/enrolled at:->[facility] us Kalpesh Damon MD LAB MICROBIOLOGY - GENERAL OR DERABLES Final Result TAMMY [address] [facility] [place] [address] from Last 3 Months Insurance [employer] CHOICE Member Subscriber Plan / Payer (Ef fective 2024-Present) Name:Cain Chase Member ID:[id number] Relation to Subscriber:Self Name:Cain Chase Subscriber ID:[id number] Payer ID:[id number] (NAIC) Type: ALLIANCE Address: [facility] [address] [address] [id number] Care Teams Assistance Representative Relationship Specialty Start Date End Date No, Physician PCP - General 04/28/22 [place] [address] [place] [address] Physician Bowling Floor Manager 07/12/24
--- OUTSIDE RECORDS SUMMARY | 2024-07-27 07:59 | XMS_ITS | Clinical Summary ---
Author Organization [facility] Address [address] [place] [address] Care Team Providers Care Coal Chute Worker Name Role Phone Logan Kaufman CHARTERED WEALTH MANAGER-SIGNALLING AND COMMUNICATIONS ENGINEER Primary Care Provider Source Comments [facility],non-owned Affiliates and Associated Physician Practices is amultiple site organization consisting of ambulatory clinics and hospital sitesin [place], [place], [place] and [place]. This disclosure is being madepursuant to the Care Everywhere program and may not contain all information available regarding this patient. 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 Gender Identity Not on file Sexual Orientation [...] 1:20 PM CDT Height 170.2 cm (5' 7) 10/11/2019 1:20 PM CDT Body Mass Index 34.93 10/11/2019 1:20 PM CDT Plan of Treatment Health Maintenance Due Date Last Done Comments LIPID TESTING 1982 MAMMOGRAM 1982 HIV SCREENING 1997 HEPATITIS C SCREENING 07/10/2000 HEPATITIS B VACCINE (1 of 3 - 19+ 3-dose series) 2001 PAP SMEAR 07/16/2003 COVID-19 VACCINE ( - 2023-2 5 season) 2023 DEPRESSION SCREENING 02/10/2024 INFLUENZA [...] patient's age to complete this topic Insurance [facility] [place] [place] Member Subscriber Plan / Payer (Ef fective for All Dates) Name:Mellisa Chase Relation to Subscriber:Self Name:Mellisa Chase Payer ID:Not on file Group ID:Not on file Type:Medicaid [place] Address: [place] [address] SELF PAY NO INSURANCE Member Subscriber Plan / Payer (Ef fective for All Dates) Name:Mellisa Chase Member ID:Not on file Relation to Subscriber:Not on file Name:MELLISA CHASE Subscriber ID:Not on file Address: [facility] [place] [address] Payer ID:Not on file Group ID:Not on file Type:Self Pay Address: [place], [place] SELF PAY NO INSURANCE Member Subscriber Plan / Payer (Ef fective for All Dates) Name:Mellisa Chase Member ID:Not on file Relation to Subscriber:Not on file Name:MELLISA CHASE Subscriber ID:Not on file Address: [address] Payer ID:Not on file Group ID:Not on file Type:Self Pay Address: [place], [place] MEDICAID [facility] SELF PAY NO INSURANCE Member Subscriber Plan / Payer (Ef fective for All Dates) Name:Mellisa Chase Member ID:Not on file Relation to Subscriber:Not on file Name:CHASEMELLISA Subscriber ID:Not on file Address: [address] [place] [address] Payer ID:Not on file Group ID:Not on file Type:Self Pay Address: [facility] Advance Directives * Full Code (Latest Code Status on File) Date Activated Date Inactivated Comments 08/18/2019 2:21 AM 08/19/2019 2:22 PM * Full Code Date Activated Date Inactivated Comments 08/18/2019 1:54 AM 08/18/2019 2:21 AM Care Teams Coal Chute Worker Relationship Specialty Start Date End Date Logan Kaufman APRN-RADHA [address] [place] [address] PCP - General Nurse Practitioner 08/30/19
--- OUTSIDE RECORDS SUMMARY | 2024-07-27 07:59 | XMS_ITS | CONTINUITY OF CARE DOCUMENT ---
Author Name mandy galvan Address Unknown Organization [facility] Address [address] [place] [address] [address] [place] [address] Phone [phone] Care Team Providers Care Petroleum Supply Specialist Name Role Phone Garth Rodriguez MD Unavailable [phone] INSURANCE PROVIDERS Payer name Policy type / Coverage type John red green party ID [place]ACH[place] MEDICAID (2) Medicaid [id number]
--- OUTSIDE RECORDS SUMMARY | 2024-07-27 07:59 | XMS_ITS | Clinical Summary ---
Author Organization [facility] Address [address] [place] [address] Care Team Providers Care Automobile Service Station Attendant Name Role Phone No, Physician Primary Care Provider [phone] Devendra Saxena Unavailable [phone] Allergies No known active allergies Medications dexAMETHasone (DECADRON) 4 mg tablet Take 1 tablet (4 mg total) by mouth daily with breakfast 5 tablet 4 Active traMADoL (ULTRAM) 50 mg tablet Take 1 tablet (50 mg total) by mouth every 6 (six) hours 12 tablet 4 Active Active Problems Problem Noted Date Diagnosed Date Pelvic pain 04/28/2022 Encounters Date Type Department Care Team Description 07/05/2024 11:10 AM CDT Lab [facility] [address] [place] [address] Pre-employment health screening examination 07/05/2024 Orders Only [facility] [address] [place] [address] [address] (Third Floor) [place] [address] Kalpesh Damon MD Pre-employment health screening examination (Primary Dx) from Last 3 Months Immunizations Immunization Administration Dates Next Due Influenza, [...] 5 season) 2023 06/07/2020, 05/10/2020 Influenza Vaccine (Season Ended) 2024 02/08/2014 DTaP/Tdap/Td Vaccine (2 - Td or Tdap) 08/16/2029 08/17/2019 HPV Vaccines Aged Out No longer eligi ble based on patient's age to complete this topic Pneumococcal vaccine <65 Aged Out No longer eligible based on patient's age to complete this topic Procedures Procedure Name Priority Date/Time Associated Diagnosis Comments T-SPOT.TB Routine 07/05/2024 10:55 AM CDT Pre-employment health screening examination from Last 3 Months Results * T-SPOT.TB Blood (07/05/2024 10:55 AM CDT) [facility] T-SPOT.TB Negative SeeBelow Comment: Normal Value: Negative [...] test. T-SPOT.TB Panel A Spot Count 1 [facility] T-SPOT.TB Panel B Spot Count 1 [facility] T-SPOT.TB Negative Control Passed [facility] T-SPOT.TB Positive Control Passed [facility] Comment: Test Performed at: [employer] [facility] [address] [place] [id number] TONY JIMENEZ,PHD Blood 07/05/2024 10:5 5 AM CDT 07/05/2024 11:30 AM CDT Narrative [facility] - 07/07/2024 3:28 PM CDT Bill to [facility] [address] Patient is employed by/enrolled at:->[facility] us Kalpesh Damon MD LAB MICROBIOLOGY - GENERAL OR DERABLES Final Result TAMMY [address] [facility] [place] [address] from Last 3 Months Insurance [facility] ACCESS CHOICE Care Teams Automobile Service Station Attendant Relationship Specialty Start Date End Date No, Physician PCP - General 04/28/22 Devendra Saxena PA [address] [place] [address] Physician Curtain Cutter Hand 07/12/24
[2024-07-27 08:02] VITALS: BP 118/65; PULSE 70; RESP 18; TEMP 36.8; O2SAT 98
--- NOTE | 2024-07-27 08:17 | ED.BACK ---
HPI - Back Pain/Injury General Chief Complaint: Back Pain/Injury Stated Complaint: back pain Time Seen by Provider: 07/27/24 08:09 History of Present Illness HPI Narrative: Patient is a 44-year-old female who presents ER with low back pain. Ongoing for several months. She had an MRI in May that showed some degenerative disease. No new numbness or weakness. No new injury. She has been out of her meloxicam and gabapentin for 1 month and would like refill. She sees her PCP in 2 weeks. No fevers or chills or sweats. No issues with urination/defecation. Related Data Home Medications ?Medication ?Instructions ?Recorded ?Confirmed ?Last Taken ?Type albuterol 90 mcg/actuation aerosol 90 mcg inhalation PRN PRN 04/29/23 01/27/24 05/06/23 History inhaler Shortness Of Breath montelukast 10 mg tablet 10 mg PO QPM 05/21/23 01/27/24 Unknown History cetirizine 10 mg tablet 10 mg PO DAILY 01/27/24 01/27/24 Unknown History fluticasone propionate 50 2 spray intranasal DAILY 01/27/24 01/27/24 Unknown History mcg/actuation nasal spray,suspension gabapentin 300 mg capsule 300 mg PO Q8H 01/27/24 01/27/24 Unknown History meloxicam 15 mg tablet 15 mg PO DAILY 01/27/24 01/27/24 Unknown History Allergies Allergy/AdvReac Type Severity Reaction Status Date / Time No Known Allergies Allergy Unknown Verified 01/27/24 13:05 Review of Systems Review of Systems: All systems reviewed & are unremarkable except as noted in HPI and below Constitutional: Constitutional: Reports no additional constitutional complaints Cardiovascular: Cardiovascular: Reports no additional cardiovascular complaints Respiratory: Respiratory: Reports no additional respiratory complaints Musculoskeletal: Musculoskeletal: Reports no additional musculoskeletal complaints [facility] Past Medical History Medical History Asthma IBS (irritable colon syndrome) Vaginal discharge Surgical History Surgical History H/O: hysterectomy History of endometrial ablation 12/2019 History of tubal ligation 05/2008 Family History Family History Father Unknown family medical history Mother Smoker in home Grandparent Diabetes mellitus Social History Social History Smoking status: Never smoker Second hand tobacco smoke exposure: Yes (parent) Alcohol intake: current Drinks per week: 1 Alcohol use details: occasionally Substance use: former Substance use type: marijuana Other substance usage details: marijuana use as a young adult Do You Feel Safe in your Home?: Yes Lack of Transportation: No Lack of Food: Never True Current Housing: I Have Housing Concerned About Future Housing: No Difficulty Paying Gas/Electric Bills: No Difficulty Paying for Meds: No Currently Unemployed: No Education: Trade/Vocational Certificate Difficulty w/ Childcare or Family Care: No Living arrangements: with family Occupation/Education: occupation 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 HEAD: Normocephalic, atraumatic. ENT: Mucous membranes moist. EXTREMITIES: Normal range of motion. No edema. NEURO: Alert and oriented x3. PSYCH: Normal mood and affect. Course Course Emergency Course: Will provide patient with medication refill as she has no acute complaints or changes in her chronic pain. Vital Signs Vital signs: Vital Signs Temperature 98.2 F 07/27/24 08:02 Pulse Rate 70 07/27/24 08:02 Respiratory Rate 18 07/27/24 08:02 Blood Pressure 118/65 07/27/24 08:02 Pulse Oximetry 98 07/27/24 08:02 Temperature 98.2 F 07/27/24 08:02 Pulse Rate 70 07/27/24 08:02 Respiratory Rate 18 07/27/24 08:02 Blood Pressure 118/65 07/27/24 08:02 Pulse Oximetry 98 07/27/24 08:02 Discharge Plan Discharge Clinical Impression: Chronic back pain Patient Disposition: Home Condition: Stable Instructions: Chronic Back Pain (DC) Additional Instructions: Please return to the emergency department if you develop severe pain that is not controlled by pain medications or if you are unable to walk because of pain or weakness. Return to the emergency department immediately if you develop fevers, loss of bowel or bladder control (dribbling of urine or having accidents you wouldn't normally have), inability to urinate, numbness of your genital or anal area, or weakness/numbness of your legs or arms as these could all be signs of a serious medical emergency. Patient Language: Tanzanian Prescriptions: New meloxicam 15 mg tablet 15 mg PO DAILY Qty: 14 0RF gabapentin 100 mg capsule 100 mg PO TID 14 Days Qty: 42 0RF No Action cetirizine 10 mg tablet 10 mg PO DAILY fluticasone propionate 50 mcg/actuation spray,suspension 2 spray INTRANASAL DAILY gabapentin 300 mg capsule 300 mg PO Q8H meloxicam 15 mg tablet 15 mg PO DAILY montelukast 10 mg tablet 10 mg PO QPM albuterol 90 mcg/actuation Aerosol 90 mcg INHALATION PRN PRN (Reason: Shortness Of Breath) Follow-up/Referrals: Hemanth,MATTIE Mead [Primary Care Provider] - 2 Weeks
[2024-07-27 08:32] VITALS: BP 109/80; PULSE 64; RESP 16; O2SAT 98
[2024-07-27 08:35] VITALS: BP 108/62; PULSE 64; RESP 16
--- OUTSIDE RECORDS SUMMARY | 2024-07-27 08:43 | XMS_ITS | Referral Summary ---
Author Organization [facility] Address [address] [place] [address] Care Team Providers Care Media Center Director School Name Role Phone No, Physician Primary Care Provider [phone] Devendra Saxena Unavailable [phone] Encounters Date Type Department Care Team Description 07/05/2024 11:10 AM CDT Lab [facility] [address] [place] [address] Pre-employment health screening examination 07/05/2024 Orders Only [facility] Occup[facility] [address] [place] [address] [address] (Third Floor) [place] [address] Kalpesh Damon MD Pre-employment health screening examination [...] * T-SPOT.TB Blood (07/05/2024 10:55 AM CDT) [facility] T-SPOT.TB Negative SeeBelow Comment: Normal Value: Negative [...] test. T-SPOT.TB Panel A Spot Count 1 [facility] T-SPOT.TB Panel B Spot Count 1 [facility] T-SPOT.TB Negative Control Passed [facility] T-SPOT.TB Positive Control Passed TAMMY MARQUES Comment: Test Performed at: [facility], [place] [address] [place] [address] TONY JIMENEZ,PHD Blood 07/05/2024 10:5 5 AM CDT 07/05/2024 11:30 AM CDT Narrative TAMMY - 07/07/2024 3:28 PM CDT Bill to [facility] Patient is employed by/enrolled at:->[facility] us Kalpesh Damon MD LAB MICROBIOLOGY - GENERAL OR DERABLES Final Result [facility] [address] [facility] Department [place] [address] from Last 3 Months Insurance [employer] 360 CHOICE Member Subscriber Plan / Payer (Ef fective 2024-Present) Name:Cain Chase Member ID:[id number] Relation to Subscriber:Self Name:Cain Chase Subscriber ID:[id number] Payer ID:[id number] (NAIC) Type: ALLIANCE Address: [facility] [id number] [place] [id number] Care Teams Media Center Director School Relationship Specialty Start Date End Date No, Physician PCP - General 04/28/22 [place] [address] [place] [address] Physician Dental Sales Representative 07/12/24
--- OUTSIDE RECORDS SUMMARY | 2024-07-27 08:43 | XMS_ITS | Clinical Summary ---
Author Organization [facility] Address [address] [place] [address] Care Team Providers Care Site Controller Name Role Phone Logan Kaufman WINDER HAND-INSTRUCTION ASSISTANT PRINCIPAL Primary Care Provider Source Comments [facility],non-owned Affiliates and Associated Physician Practices is amultiple site organization consisting of ambulatory clinics and hospital sitesin [place], [place], [place] and [place]. This disclosure is being madepursuant to the Care Everywhere program and may not contain all information available regarding this patient. Last updated 17.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 Gender Identity Not on file Sexual Orientation [...] patient's age to complete this topic Insurance [facility] [place] Member Subscriber Plan / Payer (Ef fective for All Dates) Name:Mellisa Chase Relation to Subscriber:Self Name:Mellisa Chase Payer ID:Not on file Group ID:Not on file Type:Medicaid [place] Address: [place] [address] SELF PAY NO INSURANCE Member Subscriber Plan / Payer (Ef fective for All Dates) Name:Mellisa Chase Member ID:Not on file Relation to Subscriber:Not on file Name:MELLISA CHASE Subscriber ID:Not on file Address: [facility] [place] [address] Payer ID:Not on file Group ID:Not on file Type:Self Pay Address: [place], [place] SELF PAY NO INSURANCE Member Subscriber Plan / Payer (Ef fective for All Dates) Name:Mellisa Chase Member ID:Not on file Relation to Subscriber:Not on file Name:MELLISA CHASE Subscriber ID:Not on file Address: [address] Payer ID:Not on file Group ID:Not on file Type:Self Pay Address: [place], [place] MEDICAID [facility] SELF PAY NO INSURANCE Member Subscriber Plan / Payer (Ef fective for All Dates) Name:Mellisa Chase Member ID:Not on file Relation to Subscriber:Not on file Name:CHASEMELLISA Subscriber ID:Not on file Address: [address] [place] [address] Payer ID:Not on file Group ID:Not on file Type:Self Pay Address: [facility] Advance Directives * Full Code (Latest Code Status on File) Date Activated Date Inactivated Comments 08/18/2019 2:21 AM 08/19/2019 2:22 PM * Full Code Date Activated Date Inactivated Comments 08/18/2019 1:54 AM 08/18/2019 2:21 AM Care Teams Site Controller Relationship Specialty Start Date End Date Logan Kaufman APRN-RADHA [address] [place] [address] PCP - General Nurse Practitioner 08/30/19
--- OUTSIDE RECORDS SUMMARY | 2024-07-27 08:43 | XMS_ITS | Clinical Summary ---
Author Organization [facility] Care Team Providers Care Internal Controls Analyst Name Role Phone Unavailable Primary Care Provider [...]
--- OUTSIDE RECORDS SUMMARY | 2024-07-27 08:43 | XMS_ITS | Clinical Summary ---
Author Organization [facility] Address [address] [place] [address] Care Team Providers Care Fund Manager Name Role Phone No, Physician Primary Care Provider [phone] Devendra Saxena Unavailable [phone] Allergies No known active allergies Medications dexAMETHasone [...] Team Description 07/05/2024 11:10 AM CDT Lab [facility] [address] [place] [address] Pre-employment health screening examination 07/05/2024 Orders Only [facility] Occupatiuonal Health [address] [place] [address] [address] (Third Floor) [place] [address] Kalpesh Damon MD Pre-employment health screening examination [...] * T-SPOT.TB Blood (07/05/2024 10:55 AM CDT) [facility] T-SPOT.TB Negative SeeBelow Comment: Normal Value: Negative [...] test. T-SPOT.TB Panel A Spot Count 1 [facility] T-SPOT.TB Panel B Spot Count 1 [facility] T-SPOT.TB Negative Control Passed [facility] T-SPOT.TB Positive Control Passed [facility] Comment: Test Performed at: [facility] [address] [place] [phone] TONY JIMENEZ,PHD Blood 07/05/2024 10:5 5 AM CDT 07/05/2024 11:30 AM CDT Narrative [facility] - 07/07/2024 3:28 PM CDT Bill to [facility] Patient is employed by/enrolled at:->[facility] us Kalpesh Damon MD LAB MICROBIOLOGY - GENERAL OR DERABLES Final Result [facility] [address] [facility] Department [place] [address] from Last 3 Months Insurance [facility] ACCESS CHOICE Care Teams Fund Manager Relationship Specialty Start Date End Date No, Physician PCP - General 04/28/22 Devendra Saxena PA [address] [place] [address] Physician Historic Sites Registrar 07/12/24
--- OUTSIDE RECORDS SUMMARY | 2024-07-27 08:43 | XMS_ITS | CONTINUITY OF CARE DOCUMENT ---
Author Name mandy galvan Address Unknown Organization [facility] Address [id number] [place] [address] [address] [place] [address] Phone [phone] Care Team Providers Care Systems Manager Name Role Phone Garth Rodriguez MD Unavailable [phone] INSURANCE PROVIDERS Payer name Policy type / Coverage type John red libertarian [place] MEDICAID (2) Medicaid [id number]
== END 2024-07-27 08:35 | disposition home or self-care (01) ==
LOC: ANHED 08:25
PROVIDERS: Emergency Provider Emergency Medicine; PCP Physician Assistant Medical
DX: M54.50 Low back pain, unspecified (principal); G89.29 Other chronic pain; J45.909 Unspecified asthma, uncomplicated; K58.9 Irritable bowel syndrome, unspecified; Z90.710 Acquired absence of both cervix and uterus; Z77.22 Contact with and (suspected) exposure to environmental tobacco smoke (acute) (chronic)
CPT/HCPCS: 99283